=== PATIENT | female | born 1975 | race Caucasian/White ===

== ENCOUNTER 2020-08-23 10:11 | Outpatient (REF) | payer OTHER, SELFPAY ==
--- NOTE | 2020-08-23 10:41 | XR_ITS ---
EXAMINATION: XR FOOT, RIGHT XR FOOT, LEFT CLINICAL INFORMATION: Pain COMPARISON: 04/09/2016 TECHNIQUE: 3 views of each foot FINDINGS: Left foot: No fracture or dislocation. Alignment is anatomic. Joint spaces are maintained. The soft tissues are unremarkable. Small Achilles heel spur. Right foot: No fracture or dislocation. Alignment is anatomic. Joint spaces are maintained. The soft tissues are unremarkable. Small Achilles heel spur. XR/XR foot LT min 3V IMPRESSION: Small heel spurs bilaterally. Otherwise unremarkable appearance of both feet.
--- NOTE | 2020-08-23 10:41 | XR_ITS ---
EXAMINATION: XR FOOT, RIGHT XR FOOT, LEFT CLINICAL INFORMATION: Pain COMPARISON: 04/09/2016 TECHNIQUE: 3 views of each foot FINDINGS: Left foot: No fracture or dislocation. Alignment is anatomic. Joint spaces are maintained. The soft tissues are unremarkable. Small Achilles heel spur. Right foot: No fracture or dislocation. Alignment is anatomic. Joint spaces are maintained. The soft tissues are unremarkable. Small Achilles heel spur. XR/XR foot RT min 3V IMPRESSION: Small heel spurs bilaterally. Otherwise unremarkable appearance of both feet.
== END 2020-08-23 10:12 | disposition home or self-care (01) ==
LOC: HO.XRAY 10:11
PROVIDERS: Absent Provider Internal Medicine; PCP Internal Medicine; Visit Provider Emergency Medicine
DX: M79.671 Pain in right foot (principal); M79.672 Pain in left foot
CPT/HCPCS: 73630

== ENCOUNTER 2020-09-10 11:12 | Outpatient (REF) | payer OTHER, SELFPAY ==
--- NOTE | 2020-09-10 11:16 | MM_ITS ---
EXAMINATION: MM SCREENING DIGITAL BREAST TOMOSYNTHESIS, BILATERAL CLINICAL INFORMATION: Screening. Asymptomatic. The lifetime risk of breast cancer based on the Tyrer-Cuzick Model is 6.8%. COMPARISON: Mammography: October 05, 2016 and studies dating back to August 14, 2013 TECHNIQUE: Digital breast tomosynthesis is performed in both the craniocaudal and mediolateral oblique views along with computer-aided detection (CAD). Synthesized 2D images are generated from the tomosynthesis. FINDINGS: The breasts are heterogeneously dense, which may obscure small masses (ACR BI-RADS breast composition Category c). There are no significant masses, abnormal calcifications, or other abnormalities. MM/MM tomosynthesis screening BI IMPRESSION: There are no significant changes from prior study. ASSESSMENT: BI-RADS 1: Negative RECOMMENDATION: Routine annual mammography screening. This patient's information was entered into a reminder system with a target due date for their next mammogram.
== END 2020-09-10 11:13 | disposition home or self-care (01) ==
LOC: HO.MAMMO 11:12
PROVIDERS: Visit Provider Internal Medicine
DX: Z12.31 Encounter for screening mammogram for malignant neoplasm of breast (principal)
CPT/HCPCS: 77063; 77067

== ENCOUNTER 2020-10-03 10:07 | Outpatient (REF) | payer OTHER, SELFPAY ==
--- NOTE | 2020-10-03 10:09 | MR_ITS ---
MR BRAIN WITHOUT AND WITH CONTRAST CLINICAL INFORMATION: Demyelinating disease. Follow-up multiple sclerosis. COMPARISON: Brain MRI 08/13/2016. TECHNIQUE: Multiplanar, multisequence MRI of the brain was obtained before and after the intravenous administration of 10 mL Gadavist. FINDINGS: Stable pattern nonspecific T2 signal changes within the supratentorial white matter. No new parenchymal signal abnormality. No enhancing lesions. No infratentorial lesions. There is no hydrocephalus, extra-axial surface collection, or herniation. The major flow voids at the skull base are preserved. There is no acute infarct on diffusion-weighted imaging. There is no intracranial hemorrhage on the gradient recalled echo acquisition. The midline structures are normal. The cerebellar tonsils are normally positioned. The cerebellum and brainstem are normal. The craniocervical junction is normal. Osseous marrow signal intensity is homogenous. The visualized soft tissues are unremarkable. There is mild mucosal thickening within the left maxillary sinus and throughout the ethmoid air cells bilaterally. MR/MR head/brain wo/w con IMPRESSION: Stable pattern nonspecific T2 signal changes within the supratentorial white matter. No new parenchymal signal abnormality. No enhancing lesions.
== END 2020-10-03 10:08 | disposition home or self-care (01) ==
LOC: HO.MRI 10:07
PROVIDERS: Visit Provider Psychiatry & Neurology Neurology
DX: G37.9 Demyelinating disease of central nervous system, unspecified (principal)
CPT/HCPCS: 70553; A9585

== ENCOUNTER 2020-10-31 13:59 | Outpatient (REF) | payer OTHER, SELFPAY | END 2020-10-31 14:00 | disposition home or self-care (01) | LOC: HO.LAB 13:59 | PROVIDERS: Visit Provider Internal Medicine | DX: Z20.822 Contact with and (suspected) exposure to COVID-19 (principal) | CPT/HCPCS: 36415; C9803; U0003 ==

== ENCOUNTER 2021-03-14 10:02 | Outpatient (REF) | payer MEDICAID, SELFPAY ==
[2021-03-15 00:05] LABS: CT PCR NOT DETECTED (Not Detect.); NG PCR NOT DETECTED (Not Detect.)
[2021-03-17 13:27] LABS: HPV mRNA E6/E7 rflx Not Detected (Not Detected)
== END 2021-03-14 10:03 | disposition home or self-care (01) ==
LOC: HO.LAB 10:02
PROVIDERS: Visit Provider Advanced Practice Midwife
DX: Z01.419 Encounter for gynecological examination (general) (routine) without abnormal findings (principal); Z11.51 Encounter for screening for human papillomavirus (HPV); Z30.011 Encounter for initial prescription of contraceptive pills; R32 Unspecified urinary incontinence
CPT/HCPCS: 87491; 87591; 87624; 88142

== ENCOUNTER 2022-01-22 21:14 | Emergency (ER) | payer MEDICAID, SELFPAY ==
[2022-01-22 22:12] VITALS: BP 140/77; PULSE 80; RESP 17; TEMP 36.3; O2SAT 100; BMI 40.9
[2022-01-22 22:50] LABS: UPreg QC Valid YES; Urine Pregnancy NEGATIVE (NEGATIVE)
--- NOTE | 2022-01-22 23:18 | ED.HA ---
HPI - Headache General Chief Complaint: Headache Stated Complaint: pain in back of head, unable to move neck Time Seen by Provider: 01/22/22 23:18 Source: patient Limitations: no limitations History of Present Illness HPI Narrative: Patient history of complex migraine headache been having headache in the occipital area for last 2 weeks slightly increased light sensitivity also has pain in the upper part of the neck and upper back with possible diagnosis of fibromyalgia no nausea no vomiting patient does get migraine headache but this headache according to her slightly different than the past no fever no chills no head injury Related Data Home Medications Medication Instructions Recorded Confirmed acetaminophen 500 mg tablet 1,000 mg PO Q6H PRN 01/22/22 01/22/22 odoqwqr-wslhsfudxlxvz-rpqzakcr 250 1 tab PO Q4-6H PRN 01/22/22 01/22/22 mg-250 mg-65 mg tablet (Excedrin Migraine) ibuprofen 600 mg tablet 1 tab PO TID PRN 01/22/22 01/22/22 Previous Rx's Medication Instructions Recorded auqlhottxc-ubxdqbmtqbhzv-dgawyokc 1 cap PO Q6H PRN #20 cap 01/23/22 50 mg-300 mg-40 mg capsule (Fioricet) sumatriptan succinate 50 mg tablet 50 mg PO Q2H PRN #10 tab 01/23/22 (Imitrex) tramadol 50 mg tablet 50 mg PO Q6H PRN #20 tab 01/23/22 Allergies Allergy/AdvReac Type Severity Reaction Status Date / Time No Known Allergies Allergy Verified 01/22/22 22:12 Review of Systems Review of Systems: Yes all other systems are reviewed and are negative PMFSH Past Medical History Medical History Gall bladder disease Migraines Surgical History History of bilateral tubal ligation History of reversal of tubal ligation Social History Social History Alcohol intake: never Patient Tobacco Use Status: Never used Tobacco Advance Directives: No Advance Directives Information Provided: Yes Gender identity: Female Physical Exam Vital Signs: Vital Signs: Last Vital Signs Temp 97.3 F 01/22/22 22:12 Pulse 78 01/23/22 00:16 Resp 16 01/23/22 00:16 BP 153/81 H 01/23/22 00:16 Pulse Ox 98 01/23/22 00:16 BMI result Body Mass Index 40.9 Appearance: Alert. Oriented X3. No acute distress. Eyes: PERRLA, No Nystagmus HEENT: Pharynx normal. Oral Mucosa moist tender to touch in occipital area no skin changes Neck: Normal inspection. Neck supple. Diffuse tenderness in trapezius area bilateral no temporal artery tenderness CVS: Normal heart rate and rhythm. Pulses normal. Respiratory: No respiratory distress. Equal air entry bilateral, no wheezing/rales/rhonchi Abdomen: Soft and nontender. no CVA tenderness Skin: Skin warm and dry. Normal skin color. Normal skin turgor. Extremities: No lower extremity edema. No calf tenderness Neuro: Oriented X 3. No motor deficit. No sensory deficit.No cerebellar signs , cranial nerves II-XII intact MDM - Headache MDM Narrative Medical decision making narrative: Patient seems to be anxious with history of migraine headaches comes here for in his headache for last 2 weeks taken Tylenol without much relief. Will give her Imitrex subcu and see the response patient does have scalp tenderness likely tension headache 12:39 patient feeling much better now after Imitrex headache is almost gone will discharge patient home on Fioricet and tramadol for migraine headaches and fibromyalgia Lab Data Attestation: I reviewed the patient's lab results. Labs: Lab Results 01/22/22 Range/Units 22:42 Urine Test NEGATIVE (NEGATIVE) Discharge Plan Discharge Clinical Impression: Headache, migraine Patient Disposition: Home, Self-Care Instructions: Migraine Headache (ED), Fibromyalgia (ED) Additional Instructions: Take medication as prescribed Follow-up with instructional support services director as scheduled and neurologist Prescriptions: New sumatriptan succinate [Imitrex] 50 mg tablet 50 mg PO Q2H PRN (Reason: migraine headache) Qty: 10 0RF Rx Instructions: do not exceed 2 doses per 24 hrs tramadol 50 mg tablet 50 mg PO Q6H PRN (Reason: pain) Qty: 20 0RF wnhnnkvmgg-lsvywkkztunhm-qdrg [Fioricet] 50-300-40 mg capsule 1 cap PO Q6H PRN (Reason: headache) Qty: 20 0RF No Action acetaminophen [Tylenol Ex Str Arthritis Pain] 500 mg Tablet 1,000 mg PO Q6H PRN (Reason: Pain) 0RF ibuprofen 600 mg tablet 1 tab PO TID PRN (Reason: Pain) 0RF Excedrin Migraine 250-250-65 mg Tablet 1 tab PO Q4-6H PRN (Reason: Pain) 0RF Interventions: ED Discharge Assessment Last Done: 01/23/22 00:50 Discharge Date/Time: 01/23/22 00:53
[2022-01-22 23:34] VITALS: PULSE 83; RESP 16; O2SAT 99
[2022-01-23] MEDS: SUMAtriptan succinate 6 MG/0.5 ML VIAL SUBCUT
[2022-01-23 00:01] VITALS: PULSE 82; RESP 15; O2SAT 100
[2022-01-23 00:16] VITALS: BP 153/81; PULSE 78; RESP 16; O2SAT 98
[2022-01-23] MEDS: Butalb/Acetamin/Caff 50/325/40 TABLET 1 TAB PO (00:46)
== END 2022-01-23 00:53 | disposition home or self-care (01) ==
PROVIDERS: Emergency Provider Internal Medicine; PCP Internal Medicine
DX: G43.909 Migraine, unspecified, not intractable, without status migrainosus (principal); Z79.899 Other long term (current) drug therapy
CPT/HCPCS: 81025; 96372; 99284; J3030

== ENCOUNTER 2022-11-15 14:31 | Emergency (ER) | payer MEDICAID, SELFPAY ==
--- NOTE | ~2022-11-15 | CT_ITS ---
EXAMINATION: CT ABDOMEN AND PELVIS WITH CONTRAST CLINICAL INFORMATION: Left lower quadrant pain COMPARISON: CT abdomen and pelvis 02/10/2015 TECHNIQUE: Multidetector volumetric images were obtained from the superior aspect of the liver through the pubic symphysis following administration 85 mL of Omnipaque 350 intravenous contrast. Sagittal and coronal reformatted images were obtained on the technologist's workstation. Oral contrast: No This CT examination was performed using dose optimization techniques as appropriate, variously including the following: *Automated exposure control *Adjustment of mA and/or kV according to patient size (this includes techniques or standardized protocols for targeted exams where dose is matched to indication/reason for exam; i.e. extremities or head) *Use of iterative reconstruction technique DLP: 936 mGy-cm FINDINGS: LUNG BASES: Small thin-walled air cyst in the right lower lobe, unchanged. Visualized lung bases otherwise clear. LIVER, GALLBLADDER, AND BILIARY TREE: The liver is normal in size, shape, and attenuation. No focal hepatic lesion or biliary ductal dilatation is present. Gallbladder is not seen and either surgically absent or entirely decompressed. PANCREAS: Unremarkable. SPLEEN: Unremarkable. ADRENAL GLANDS: Unremarkable. KIDNEYS AND URETERS: The kidneys are normal in size, shape, and attenuation. No hydronephrosis, hydroureter, or calculi seen. No perinephric stranding. BLADDER: Unremarkable. GASTROINTESTINAL TRACT: Small hiatal hernia. No dilated bowel loops or bowel wall thickening. Normal appendix. No ascites or free air. ABDOMINAL WALL: No significant hernia is appreciated. LYMPH NODES: No lymphadenopathy. VASCULAR: Unremarkable. PELVIC VISCERA: The uterus and adnexa are unremarkable. OSSEOUS STRUCTURES: No acute fracture or suspicious osseous lesion. CT/CT abdomen pelvis w IV con IMPRESSION: No acute intra-abdominal process identified to explain the patient's left lower quadrant pain.
[2022-11-15 14:40] VITALS: BP 144/79; PULSE 88; RESP 16; TEMP 36.4; O2SAT 98
--- NOTE | 2022-11-15 14:40 | ED_ITS ---
HPI - Abdominal Pain General Chief Complaint: Abdominal Pain <ELINA Mo - Last Filed: 11/15/22 14:41> Stated Complaint: abd pain <ELINA Mo - Last Filed: 11/15/22 14:41> Time Seen by Provider: 11/15/22 21:45 <ELINA Mo - Last Filed: 11/15/22 14:41> Source: patient <Abner Vargas MD - Last Filed: 11/15/22 23:03> Mode of arrival: ambulatory <Abner Vargas MD - Last Filed: 11/15/22 23:03> Limitations: no limitations <Abner Vargas MD - Last Filed: 11/15/22 23:03> History of Present Illness HPI narrative: Patient 47 years old with no significant past medical history complaining of left lower abdominal pain with nausea for last 1 week patient does have pain in the left abdomen off and on for last 3 months for for last 1 week they constant feels cramping pain associated with nausea vomited 2-3 times feels hungry eating normally no relation with food no diarrhea no fever or chills patient feels bloated had normal bowel movement <Abner Vargas MD - Last Filed: 11/15/22 23:03> Related Data Home Medications: Home Medications Medication Instructions Recorded Confirmed acetaminophen 500 mg tablet 1,000 mg PO Q6H PRN Pain 01/22/22 01/22/22 wbbejwb-jdkouklecxzlo-izuxsfve 250 1 tab PO Q4-6H PRN Pain 01/22/22 01/22/22 mg-250 mg-65 mg tablet (Excedrin Migraine) ibuprofen 600 mg tablet 1 tab PO TID PRN Pain 01/22/22 01/22/22 Previous Rx's Medication Instructions Recorded dwwkaahjla-qwskuevpgoixh-xfryjnte 1 cap PO Q6H PRN headache #20 caps 01/23/22 50 mg-300 mg-40 mg capsule (Fioricet) sumatriptan succinate 50 mg tablet 50 mg PO Q2H PRN migraine headache 01/23/22 (Imitrex) #10 tabs tramadol 50 mg tablet 50 mg PO Q6H PRN pain #20 tabs 01/23/22 dicyclomine 20 mg tablet 20 mg PO QID PRN abdominal pain 11/15/22 #20 tabs <ELINA Mo - Last Filed: 11/15/22 14:41> Allergies/Adverse Reactions: Allergies Allergy/AdvReac Type Severity Reaction Status Date / Time No Known Allergies Allergy Verified 01/22/22 22:12 <ELINA Mo - Last Filed: 11/15/22 14:41> Review of Systems Review of Systems Yes all other systems are reviewed and are negative <Abner Vargas MD - Last Filed: 11/15/22 23:03> [facility] Past Medical History Medical History: Medical History Gall bladder disease Migraines <ELINA Mo - Last Filed: 11/15/22 14:41> Surgical History: Surgical History History of bilateral tubal ligation History of reversal of tubal ligation <ELINA Mo - Last Filed: 11/15/22 14:41> Social History Social History: Social History Alcohol intake: never Patient Tobacco Use Status: Never used Tobacco Smoked in Last 30 Days: No Use of substances other than those prescribed or required for medical reasons: No Advance Directives: No Advance Directives Information Provided: Yes Patient : No Gender identity: Female <ELINA Mo - Last Filed: 11/15/22 14:41> Physical Exam ED Vital Signs: Vital Signs - 24 hr 11/15/22 14:40 11/15/22 19:01 11/15/22 21:43 Temperature 97.5 F 98.2 F 98.7 F Pulse Rate 88 88 76 Respiratory Rate 16 18 16 Blood Pressure 144/79 H 143/76 H 134/73 Pulse Oximetry 98 98 99 Oxygen Delivery Method Room Air Room Air Room Air BMI result Body Mass Index 0.4 <ELINA Mo - Last Filed: 11/15/22 14:41> Vital Signs - 24 hr 11/15/22 14:40 11/15/22 19:01 11/15/22 21:43 Temperature 97.5 F 98.2 F 98.7 F Pulse Rate 88 88 76 Respiratory Rate 16 18 16 Blood Pressure 144/79 H 143/76 H 134/73 Pulse Oximetry 98 98 99 Oxygen Delivery Method Room Air Room Air Room Air BMI result Body Mass Index 0.4 <Abner Vargas MD - Last Filed: 11/15/22 23:03> Appearance: Alert. Oriented X3. No acute distress. Eyes: PERRLA, No Nystagmus ENT: Pharynx normal. Oral Mucosa moist Neck: Normal inspection. Neck supple. CVS: Normal heart rate and rhythm. Pulses normal. Respiratory: No respiratory distress. Equal air entry bilateral, no wheezing/rales/rhonchi Abdomen: Soft , mild tenderness left abdomen no rebound tenderness or guarding. Bowel sounds are present, no mass palpable, no CVA tenderness Skin: Skin warm and dry. Normal skin color. Normal skin turgor. Extremities: No lower extremity edema. No calf tenderness Neuro: Oriented X 3. <Abner Vargas MD - Last Filed: 11/15/22 23:03> Course Course Course Narrative: This is an RME: Additional HPI, ROS, PE not included below will be deferred to primary provider. This is a 47-year-old female presenting to the emergency department with complaints of 3 days of progressively worsening left lower quadrant pain ( sharp, constant) at with associated nausea. Patient tells me the pain is severe not improving. On exam there is left lower quadrant tenderness to palpation. Plan at this time labs, urine, CT of the abdomen and pelvis. No history of diverticulitis. <ELINA Mo - Last Filed: 11/15/22 14:41> Medical Decision Making Medical Decision Making MDM Narrative: Patient with nonspecific abdominal pain lab workup stable CT scan negative for acute pathology likely IBS will give patient dicyclomine <Abner Borrero i, MD - Last Filed: 11/15/22 23:03> Lab Data [facility] Lab Attestation statement: I reviewed the patient's lab results. <Abner Vargas MD - Last Filed: 11/15/22 23:03> Result Diagrams: 11/15/22 17:13 11/15/22 17:13 <ELINA Mo - Last Filed: 11/15/22 14:41> Labs: Lab Results 11/15/22 11/15/22 11/15/22 Range/Units 17:13 17:13 17:13 WBC 9.3 (4.8-10.8) X10*3/uL RBC 4.97 (4.20-5.50) X10*6/uL Hgb 13.5 (12.0-16.0) g/dl Hct 41.8 (37.0-47.0) % MCV 84.1 (80.0-98.0) fL MCH 27.2 (27.0-33.0) pg MCHC 32.3 (31.0-35.0) g/dl RDW 12.6 (11.0-16.0) % Plt Count 318 (160-400) X10*3/uL MPV 9.9 (9.4-12.3) fL Immature Gran % (Auto) 0.5 H (0.0-0.4) % Neut % (Auto) 58.1 (45-73) % Lymph % (Auto) 28.3 (20-40) % [place] % (Auto) 8.5 (2-11) % Eos % (Auto) 4.0 (0-4) % Baso % (Auto) 0.6 (0-2) % Lymph # (Auto) 2.6 (1.2-4.9) X10*3/uL [place] # (Auto) 0.8 (0.1-1.2) X10*3/uL Eos # (Auto) 0.4 (0.0-0.4) X10*3/uL Baso # (Auto) 0.1 (0.0-0.2) X10*3/uL Abs Immat Gran (auto) 0.05 H (0.00-0.03) X10*3/uL Absolute Neuts (auto) 5.4 (2.0-8.3) x10*3/uL Absolute Nucleated RBC 0.000 (0.0-0.012) X10*3/uL Nucleated RBC % (auto) 0.0 (0.0-0.2) /100WBC Sodium 141 (135-145) mmol/L Potassium 3.7 (3.3-5.1) mmol/L Chloride 109 H (96-108) mmol/L Carbon Dioxide 24 (22-29) mmol/L Anion Gap 12 (12-20) BUN 14 (9-16) mg/dL Creatinine 0.85 (0.5-1.4) mg/dL Estim Creat Clear Calc 121.5 Estimated GFR > 60 Random Glucose 95 (60-115) mg/dL Calcium 9.0 (8.4-10.2) mg/dL Magnesium 1.8 (1.6-2.6) mg/dL Total Bilirubin 0.5 (0.0-1.0) mg/dL AST 15 (5-31) U/L ALT 14 (0-31) U/L Alkaline Phosphatase 104 (39-117) U/L Total Protein 7.1 (6.5-8.0) g/dL Albumin 4.0 (3.5-5.0) g/dL Lipase 11 (8-78) U/L Urine Color Yellow Urine Appearance Clear Urine pH 5.5 (5.0-9.0) Ur Specific [place] 1.020 (1.005-1.025) Urine Protein Negative (Neg-Trace) mg/dL Urine Glucose (UA) Negative (Negative) mg/dL Urine Ketones Negative (Negative) mg/dL Urine Blood Trace H (Negative) Urine Nitrite Negative (Negative) Ur Leukocyte Esterase Negative (Negative) Urine RBC 3-5 H (0-2) /HPF Urine WBC 0-5 (0-5) /HPF Ur Squamous Epith Cells 0-2 (0-2) /HPF Urine Bacteria None Seen (None Seen) Hyaline Casts 0-2 (0-2) /LPF Urine Test (NEGATIVE) 11/15/22 Range/Units 17:13 WBC (4.8-10.8) X10*3/uL RBC (4.20-5.50) X10*6/uL Hgb (12.0-16.0) g/dl Hct (37.0-47.0) % MCV (80.0-98.0) fL MCH (27.0-33.0) pg MCHC (31.0-35.0) g/dl RDW (11.0-16.0) % Plt Count (160-400) X10*3/uL MPV (9.4-12.3) fL Immature Gran % (Auto) (0.0-0.4) % Neut % (Auto) (45-73) % Lymph % (Auto) (20-40) % [place] % (Auto) (2-11) % Eos % (Auto) (0-4) % Baso % (Auto) (0-2) % Lymph # (Auto) (1.2-4.9) X10*3/uL [place] # (Auto) (0.1-1.2) X10*3/uL Eos # (Auto) (0.0-0.4) X10*3/uL Baso # (Auto) (0.0-0.2) X10*3/uL Abs Immat Gran (auto) (0.00-0.03) X10*3/uL Absolute Neuts (auto) (2.0-8.3) x10*3/uL Absolute Nucleated RBC (0.0-0.012) X10*3/uL Nucleated RBC % (auto) (0.0-0.2) /100WBC Sodium (135-145) mmol/L Potassium (3.3-5.1) mmol/L Chloride (96-108) mmol/L Carbon Dioxide (22-29) mmol/L Anion Gap (12-20) BUN (9-16) mg/dL Creatinine (0.5-1.4) mg/dL Estim Creat Clear Calc Estimated GFR Random Glucose (60-115) mg/dL Calcium (8.4-10.2) mg/dL Magnesium (1.6-2.6) mg/dL Total Bilirubin (0.0-1.0) mg/dL AST (5-31) U/L ALT (0-31) U/L Alkaline Phosphatase (39-117) U/L Total Protein (6.5-8.0) g/dL Albumin (3.5-5.0) g/dL Lipase (8-78) U/L Urine Color Urine Appearance Urine pH (5.0-9.0) Ur Specific [place] (1.005-1.025) Urine Protein (Neg-Trace) mg/dL Urine Glucose (UA) (Negative) mg/dL Urine Ketones (Negative) mg/dL Urine Blood (Negative) Urine Nitrite (Negative) Ur Leukocyte Esterase (Negative) Urine RBC (0-2) /HPF Urine WBC (0-5) /HPF Ur Squamous Epith Cells (0-2) /HPF Urine Bacteria (None Seen) Hyaline Casts (0-2) /LPF Urine Test NEGATIVE (NEGATIVE) <ELINA Mo - Last Filed: 11/15/22 14:41> Lab Results 11/15/22 11/15/22 11/15/22 Range/Units 17:13 17:13 17:13 WBC 9.3 (4.8-10.8) X10*3/uL RBC 4.97 (4.20-5.50) X10*6/uL Hgb 13.5 (12.0-16.0) g/dl Hct 41.8 (37.0-47.0) % MCV 84.1 (80.0-98.0) fL MCH 27.2 (27.0-33.0) pg MCHC 32.3 (31.0-35.0) g/dl RDW 12.6 (11.0-16.0) % Plt Count 318 (160-400) X10*3/uL MPV 9.9 (9.4-12.3) fL Immature Gran % (Auto) 0.5 H (0.0-0.4) % Neut % (Auto) 58.1 (45-73) % Lymph % (Auto) 28.3 (20-40) % [place] % (Auto) 8.5 (2-11) % Eos % (Auto) 4.0 (0-4) % Baso % (Auto) 0.6 (0-2) % Lymph # (Auto) 2.6 (1.2-4.9) X10*3/uL [place] # (Auto) 0.8 (0.1-1.2) X10*3/uL Eos # (Auto) 0.4 (0.0-0.4) X10*3/uL Baso # (Auto) 0.1 (0.0-0.2) X10*3/uL Abs Immat Gran (auto) 0.05 H (0.00-0.03) X10*3/uL Absolute Neuts (auto) 5.4 (2.0-8.3) x10*3/uL Absolute Nucleated RBC 0.000 (0.0-0.012) X10*3/uL Nucleated RBC % (auto) 0.0 (0.0-0.2) /100WBC Sodium 141 (135-145) mmol/L Potassium 3.7 (3.3-5.1) mmol/L Chloride 109 H (96-108) mmol/L Carbon Dioxide 24 (22-29) mmol/L Anion Gap 12 (12-20) BUN 14 (9-16) mg/dL Creatinine 0.85 (0.5-1.4) mg/dL Estim Creat Clear Calc 121.5 Estimated GFR > 60 Random Glucose 95 (60-115) mg/dL Calcium 9.0 (8.4-10.2) mg/dL Magnesium 1.8 (1.6-2.6) mg/dL Total Bilirubin 0.5 (0.0-1.0) mg/dL AST 15 (5-31) U/L ALT 14 (0-31) U/L Alkaline Phosphatase 104 (39-117) U/L Total Protein 7.1 (6.5-8.0) g/dL Albumin 4.0 (3.5-5.0) g/dL Lipase 11 (8-78) U/L Urine Color Yellow Urine Appearance Clear Urine pH 5.5 (5.0-9.0) Ur Specific [place] 1.020 (1.005-1.025) Urine Protein Negative (Neg-Trace) mg/dL Urine Glucose (UA) Negative (Negative) mg/dL Urine Ketones Negative (Negative) mg/dL Urine Blood Trace H (Negative) Urine Nitrite Negative (Negative) Ur Leukocyte Esterase Negative (Negative) Urine RBC 3-5 H (0-2) /HPF Urine WBC 0-5 (0-5) /HPF Ur Squamous Epith Cells 0-2 (0-2) /HPF Urine Bacteria None Seen (None Seen) Hyaline Casts 0-2 (0-2) /LPF Urine Test (NEGATIVE) 11/15/22 Range/Units 17:13 WBC (4.8-10.8) X10*3/uL RBC (4.20-5.50) X10*6/uL Hgb (12.0-16.0) g/dl Hct (37.0-47.0) % MCV (80.0-98.0) fL MCH (27.0-33.0) pg MCHC (31.0-35.0) g/dl RDW (11.0-16.0) % Plt Count (160-400) X10*3/uL MPV (9.4-12.3) fL Immature Gran % (Auto) (0.0-0.4) % Neut % (Auto) (45-73) % Lymph % (Auto) (20-40) % [place] % (Auto) (2-11) % Eos % (Auto) (0-4) % Baso % (Auto) (0-2) % Lymph # (Auto) (1.2-4.9) X10*3/uL [place] # (Auto) (0.1-1.2) X10*3/uL Eos # (Auto) (0.0-0.4) X10*3/uL Baso # (Auto) (0.0-0.2) X10*3/uL Abs Immat Gran (auto) (0.00-0.03) X10*3/uL Absolute Neuts (auto) (2.0-8.3) x10*3/uL Absolute Nucleated RBC (0.0-0.012) X10*3/uL Nucleated RBC % (auto) (0.0-0.2) /100WBC Sodium (135-145) mmol/L Potassium (3.3-5.1) mmol/L Chloride (96-108) mmol/L Carbon Dioxide (22-29) mmol/L Anion Gap (12-20) BUN (9-16) mg/dL Creatinine (0.5-1.4) mg/dL Estim Creat Clear Calc Estimated GFR Random Glucose (60-115) mg/dL Calcium (8.4-10.2) mg/dL Magnesium (1.6-2.6) mg/dL Total Bilirubin (0.0-1.0) mg/dL AST (5-31) U/L ALT (0-31) U/L Alkaline Phosphatase (39-117) U/L Total Protein (6.5-8.0) g/dL Albumin (3.5-5.0) g/dL Lipase (8-78) U/L Urine Color Urine Appearance Urine pH (5.0-9.0) Ur Specific [place] (1.005-1.025) Urine Protein (Neg-Trace) mg/dL Urine Glucose (UA) (Negative) mg/dL Urine Ketones (Negative) mg/dL Urine Blood (Negative) Urine Nitrite (Negative) Ur Leukocyte Esterase (Negative) Urine RBC (0-2) /HPF Urine WBC (0-5) /HPF Ur Squamous Epith Cells (0-2) /HPF Urine Bacteria (None Seen) Hyaline Casts (0-2) /LPF Urine Test NEGATIVE (NEGATIVE) <Abner Vargas MD - Last Filed: 11/15/22 23:03> Medications Administered Discontinued Medications Generic Name Dose Route Start Last Admin Trade Name Freq PRN Reason Stop Dose Admin Dicyclomine HCl 20 mg 11/15/22 22:26 11/15/22 22:48 Dicyclomine Hcl 10 Mg Capsule PO 11/15/22 22:27 20 mg ONCE ONE Administration Iohexol 85 ml 11/15/22 22:19 11/15/22 22:20 Iohexol 350 Mg/Ml 100 Ml Infus..Btl IV 11/15/22 22:20 85 ml ONCE ONE Administration <ELINA Mo - Last Filed: 11/15/22 14:41> Medications Administered Discontinued Medications Generic Name Dose Route Start Last Admin Trade Name Freq PRN Reason Stop Dose Admin Dicyclomine HCl 20 mg 11/15/22 22:26 11/15/22 22:48 Dicyclomine Hcl 10 Mg Capsule PO 11/15/22 22:27 20 mg ONCE ONE Administration Iohexol 85 ml 11/15/22 22:19 11/15/22 22:20 Iohexol 350 Mg/Ml 100 Ml Infus..Btl IV 11/15/22 22:20 85 ml ONCE ONE Administration <Abner Vargas MD - Last Filed: 11/15/22 23:03> Discharge Plan Discharge Clinical Impression: Abdominal pain <ELINA Mo - Last Filed: 11/15/22 14:41> Patient Disposition: Home, Self-Care <ELINA Mo - Last Filed: 11/15/22 14:41> Instructions: Irritable Bowel Syndrome (ED), Abdominal Pain (ED) <ELINA Mo - Last Filed: 11/15/22 14:41> Additional Instructions: workup is negative for any acute pathology for abdominal pain Taking dicyclomine 1 tablet every 8 hours as needed for the pain Follow-up with PCP <ELINA Mo - Last Filed: 11/15/22 14:41> Prescriptions: New dicyclomine 20 mg tablet 20 mg PO QID PRN (Reason: abdominal pain) Qty: 20 0RF No Action acetaminophen [Tylenol Ex Str Arthritis Pain] 500 mg Tablet 1,000 mg PO Q6H PRN (Reason: Pain) ibuprofen 600 mg tablet 1 tab PO TID PRN (Reason: Pain) Excedrin Migraine 250-250-65 mg Tablet 1 tab PO Q4-6H PRN (Reason: Pain) sumatriptan succinate [Imitrex] 50 mg tablet 50 mg PO Q2H PRN (Reason: migraine headache) Qty: 10 0RF Rx Instructions: do not exceed 2 doses per 24 hrs tramadol 50 mg tablet 50 mg PO Q6H PRN (Reason: pain) Qty: 20 0RF fwerjddwps-jnlrrhlvkayzl-jpah [Fioricet] 50-300-40 mg capsule 1 cap PO Q6H PRN (Reason: headache) Qty: 20 0RF <ELINA Mo - Last Filed: 11/15/22 14:41>
[2022-11-15 17:20] LABS: MANUAL DIFF FLAG NO
[2022-11-15 17:22] LABS: Basophils Absolute Auto 0.1 X10*3/uL (0.0-0.2); Basophils Percent Auto 0.6 % (0-2); Eosinophils Absolute Auto 0.4 X10*3/uL (0.0-0.4); Hematocrit 41.8 % (37.0-47.0); Hemoglobin 13.5 g/dl (12.0-16.0); Imm Gran Abs Auto 0.05 X10*3/uL (0.00-0.03); Imm Gran Pct Auto 0.5 % (0.0-0.4); Lymphocytes Absolute Auto 2.6 X10*3/uL (1.2-4.9); Lymphocytes Percent Auto 28.3 % (20-40); Mean Corpuscular HGB Conc 32.3 g/dl (31.0-35.0); Mean Corpuscular Hemoglobin 27.2 pg (27.0-33.0); Mean Corpuscular Volume 84.1 fL (80.0-98.0); Mean Platelet Volume 9.9 fL (9.4-12.3); Monocytes Absolute Auto 0.8 X10*3/uL (0.1-1.2); Monocytes Percent Auto 8.5 % (2-11); Neutrophils Absolute Auto 5.4 x10*3/uL (2.0-8.3); Neutrophils Percent Auto 58.1 % (45-73); Platelet Count 318 X10*3/uL (160-400); Red Blood Count 4.97 X10*6/uL (4.20-5.50); Red Cell Distribution Width 12.6 % (11.0-16.0); White Blood Count 9.3 X10*3/uL (4.8-10.8)
[2022-11-15 17:24] LABS: Appearance Urine Clear; Color Urine Yellow; Glucose Urine UA Negative (Negative); Leukocyte Esterase Urine Negative (Negative); Nitrite Urine Negative (Negative); PH 5.5 (5.0-9.0); UMIC TRIGGER UACC YES; Urine Blood Trace (Negative); Urine Ketones Negative (Negative); Urine Protein Negative (Neg-Trace)
[2022-11-15 17:26] LABS: Bacteria Urine None Seen (None Seen); Hyaline Casts Urine 0-2 /LPF (0-2); Squamous Epithelial Cell Urine 0-2 /HPF (0-2); WBC Urine 0-5 /HPF (0-5)
[2022-11-15 17:27] LABS: UPreg QC Valid YES; Urine Pregnancy NEGATIVE (NEGATIVE)
[2022-11-15 17:38] LABS: Alanine Aminotransferase 14 U/L (0-31); Alkaline Phosphatase 104 U/L (39-117); Anion Gap 12 (12-20); Aspartate Amino Transferase 15 U/L (5-31); Bilirubin Total 0.5 mg/dL (0.0-1.0); Blood Urea Nitrogen 14 mg/dL (9-16); Carbon Dioxide 24 mmol/L (22-29); Chloride 109 mmol/L (96-108); Creatinine Clr Calc Pharmacy 121.5; Estimated Glomerular Filt Rate > 60; Glucose Random 95 mg/dL (60-115); Lipase 11 U/L (8-78); Magnesium 1.8 mg/dL (1.6-2.6); Potassium 3.7 mmol/L (3.3-5.1); Sodium 141 mmol/L (135-145); Total Protein 7.1 g/dL (6.5-8.0)
[2022-11-15 19:01] VITALS: BP 143/76; PULSE 88; RESP 18; TEMP 36.8; O2SAT 98
[2022-11-15 21:43] VITALS: BP 134/73; PULSE 76; RESP 16; TEMP 37.1; O2SAT 99
--- NOTE | 2022-11-15 22:08 | PC.NURSE ---
PT A&Ox4, reports 05/16 LLQ abd pain x 3 days. States it feels cramping and its intermittent with N/V. Reports last BM today. + bowel sounds. IV line placed.
[2022-11-15] MEDS: iohexoL 350 MG/ML 100 ML INFUS..BTL 85 ML IV (22:20)
[2022-11-15] MEDS: Dicyclomine HCl 10 MG CAPSULE 20 MG PO (22:48)
== END 2022-11-15 23:13 | disposition home or self-care (01) ==
PROVIDERS: Physician Assistant; Emergency Provider Internal Medicine; PCP Internal Medicine
DX: R10.32 Left lower quadrant pain (principal); Z79.899 Other long term (current) drug therapy
CPT/HCPCS: 36415; 74177; 80053; 81001; 81025; 83690; 83735; 85025; 99284; Q9967

== ENCOUNTER 2022-12-30 13:34 | Emergency (ER) | payer MEDICAID, SELFPAY ==
--- NOTE | ~2022-12-30 | CT_ITS ---
EXAMINATION: CT HEAD WITHOUT CONTRAST CLINICAL INFORMATION: Dizziness COMPARISON: None available. TECHNIQUE: Contiguous axial imaging was performed from the skull base to vertex without intravenous administration of contrast. This CT examination was performed using dose optimization techniques as appropriate, variously including the following: *Automated exposure control *Adjustment of mA and/or kV according to patient size (this includes techniques or standardized protocols for targeted exams where dose is matched to indication/reason for exam; i.e. extremities or head) *Use of iterative reconstruction technique DLP: 630 mGy-cm FINDINGS: FINDINGS: There is no evidence of acute intracranial hemorrhage or territorial infarction. No abnormal mass effect or midline shift is seen. Vera to white matter differentiation is well preserved. No extra-axial fluid collections are identified. The ventricles are normal in size. No abnormal attenuation in the brain parenchyma. No acute calvarial fracture.. Paranasal sinuses and mastoid air cells are well-aerated. CT/CT head/brain wo IV con IMPRESSION: No CT evidence of acute intracranial hemorrhage or process.
[2022-12-30 14:01] VITALS: BP 139/75; PULSE 85; RESP 15; TEMP 36.6; O2SAT 98; BMI 43.9
--- NOTE | 2022-12-30 14:08 | ECG_ITS ---
Test Reason : DIZZINESS Blood Pressure : / mmHG Vent. Rate : 075 BPM Atrial Rate : 075 BPM P-R Int : 136 ms QRS Dur : 086 ms QT Int : 392 ms P-R-T Axes : 042 026 020 degrees QTc Int : 437 ms Normal sinus rhythm Normal ECG When compared with ECG of 30-AUG-2019 13:16, No significant change was found Referred By: Ovidio Michel Electronically Signed By:JESUS MAYFIELD
--- NOTE | 2022-12-30 14:09 | ED.GENADULT ---
HPI - General Adult General Chief complaint: Headache Stated complaint: Dizziness/Blurred vision/Head pain Time Seen by Provider: 12/30/22 21:15 Related Data Home Medications Medication Instructions Recorded Confirmed acetaminophen 500 mg tablet 1,000 mg PO Q6H PRN Pain 01/22/22 01/22/22 egicoti-cqowqncdrknru-kfrsztfe 250 1 tab PO Q4-6H PRN Pain 01/22/22 01/22/22 mg-250 mg-65 mg tablet (Excedrin Migraine) ibuprofen 600 mg tablet 1 tab PO TID PRN Pain 01/22/22 01/22/22 Previous Rx's Medication Instructions Recorded msyfnzdtgp-qezrbsrdkjuue-rqvdndjv 1 cap PO Q6H PRN headache #20 caps 01/23/22 50 mg-300 mg-40 mg capsule (Fioricet) sumatriptan succinate 50 mg tablet 50 mg PO Q2H PRN migraine headache 01/23/22 (Imitrex) #10 tabs tramadol 50 mg tablet 50 mg PO Q6H PRN pain #20 tabs 01/23/22 dicyclomine 20 mg tablet 20 mg PO QID PRN abdominal pain 11/15/22 #20 tabs Allergies Allergy/AdvReac Type Severity Reaction Status Date / Time No Known Allergies Allergy Verified 01/22/22 22:12 [facility] Past Medical History Medical History Gall bladder disease Migraines Surgical History History of bilateral tubal ligation History of reversal of tubal ligation Social History Social History Alcohol intake: never Patient Tobacco Use Status: Never used Tobacco Advance Directives: No Advance Directives Information Provided: Yes Gender identity: Female Physical Exam ED Vital Signs: Vital Signs - 24 hr 12/30/22 14:01 12/30/22 20:36 12/30/22 22:56 Temperature 98 F 98.9 F 98.0 F Pulse Rate 85 82 80 Respiratory Rate 15 16 16 Blood Pressure 139/75 139/82 133/67 Pulse Oximetry 98 98 97 Oxygen Delivery Method Room Air Room Air Room Air BMI result Body Mass Index 43.9 Course Course Course Narrative: RME: 47 yold female presents to the ED for headache, blurry visions, dizziness ( room spining). Negative for fever or chills. no chest pain or shortness of breath. neuro exam is normal and A0x3. SARS, labs, EkG, and head CT scan ordered Medications Administered Discontinued Medications Generic Name Dose Route Start Last Admin Trade Name Freq PRN Reason Stop Dose Admin Diphenhydramine HCl 50 mg 12/30/22 21:37 12/30/22 22:30 Diphenhydramine Hcl 50 Mg/Ml Vial IVPUSH 12/30/22 21:38 50 mg ONCE ONE Administration Sodium Chloride 1,000 mls @ 999 mls/hr 12/30/22 21:45 12/30/22 22:02 Ns IV 12/30/22 22:45 999 mls/hr .Q1H1M LONI Administration Ketorolac Tromethamine 15 mg 12/30/22 21:37 12/30/22 22:30 Ketorolac Tromethamine 15 Mg/Ml Vial IVPUSH 12/30/22 21:38 15 mg ONCE ONE Administration Metoclopramide HCl 10 mg 12/30/22 21:37 12/30/22 22:30 Metoclopramide Hcl 10 Mg/2 Ml Vial IVPUSH 12/30/22 21:38 10 mg ONCE ONE Administration Medical Decision Making Lab Data 12/30/22 14:58 12/30/22 14:58 Labs: Lab Results 12/30/22 12/30/22 12/30/22 Range/Units 14:58 14:58 14:58 WBC 7.0 (4.8-10.8) X10*3/uL RBC 4.79 (4.20-5.50) X10*6/uL Hgb 13.0 (12.0-16.0) g/dl Hct 40.3 (37.0-47.0) % MCV 84.1 (80.0-98.0) fL MCH 27.1 (27.0-33.0) pg MCHC 32.3 (31.0-35.0) g/dl RDW 12.4 (11.0-16.0) % Plt Count 308 (160-400) X10*3/uL MPV 9.7 (9.4-12.3) fL Immature Gran % (Auto) 0.7 H (0.0-0.4) % Neut % (Auto) 55.0 (45-73) % Lymph % (Auto) 30.3 (20-40) % [place] % (Auto) 9.3 (2-11) % Eos % (Auto) 4.1 H (0-4) % Baso % (Auto) 0.6 (0-2) % Lymph # (Auto) 2.1 (1.2-4.9) X10*3/uL [place] # (Auto) 0.7 (0.1-1.2) X10*3/uL Eos # (Auto) 0.3 (0.0-0.4) X10*3/uL Baso # (Auto) 0.0 (0.0-0.2) X10*3/uL Abs Immat Gran (auto) 0.05 H (0.00-0.03) X10*3/uL Absolute Neuts (auto) 3.9 (2.0-8.3) x10*3/uL Absolute Nucleated RBC 0.000 (0.0-0.012) X10*3/uL Nucleated RBC % (auto) 0.0 (0.0-0.2) /100WBC PT 11.7 (10.0-13.1) SEC INR 1.0 (0.9-1.1) APTT 31.9 (26.0-36.4) SEC Sodium 143 (135-145) mmol/L Potassium 4.0 (3.3-5.1) mmol/L Chloride 110 H (96-108) mmol/L Carbon Dioxide 25 (22-29) mmol/L Anion Gap 12 (12-20) BUN 15 (9-16) mg/dL Creatinine 0.74 (0.5-1.4) mg/dL Estim Creat Clear Calc 106.8 Estimated GFR > 60 Random Glucose 81 (60-115) mg/dL Calcium 8.7 (8.4-10.2) mg/dL Total Bilirubin 0.3 (0.0-1.0) mg/dL AST 18 (5-31) U/L ALT 17 (0-31) U/L Alkaline Phosphatase 89 (39-117) U/L Troponin I High Sens (<3.5-17.0) ng/L Total Protein 6.7 (6.5-8.0) g/dL Albumin 3.8 (3.5-5.0) g/dL Beta HCG, Quant mIU/mL Influenza Type A (PCR) (Negative) Influenza Type B (PCR) (Negative) RSV RNA Qual (PCR) (Negative) SARS-CoV-2 RNA (RT-PCR) (Negative) 12/30/22 12/30/22 12/30/22 Range/Units 14:58 14:58 14:58 WBC (4.8-10.8) X10*3/uL RBC (4.20-5.50) X10*6/uL Hgb (12.0-16.0) g/dl Hct (37.0-47.0) % MCV (80.0-98.0) fL MCH (27.0-33.0) pg MCHC (31.0-35.0) g/dl RDW (11.0-16.0) % Plt Count (160-400) X10*3/uL MPV (9.4-12.3) fL Immature Gran % (Auto) (0.0-0.4) % Neut % (Auto) (45-73) % Lymph % (Auto) (20-40) % [place] % (Auto) (2-11) % Eos % (Auto) (0-4) % Baso % (Auto) (0-2) % Lymph # (Auto) (1.2-4.9) X10*3/uL [place] # (Auto) (0.1-1.2) X10*3/uL Eos # (Auto) (0.0-0.4) X10*3/uL Baso # (Auto) (0.0-0.2) X10*3/uL Abs Immat Gran (auto) (0.00-0.03) X10*3/uL Absolute Neuts (auto) (2.0-8.3) x10*3/uL Absolute Nucleated RBC (0.0-0.012) X10*3/uL Nucleated RBC % (auto) (0.0-0.2) /100WBC PT (10.0-13.1) SEC INR (0.9-1.1) APTT (26.0-36.4) SEC Sodium (135-145) mmol/L Potassium (3.3-5.1) mmol/L Chloride (96-108) mmol/L Carbon Dioxide (22-29) mmol/L Anion Gap (12-20) BUN (9-16) mg/dL Creatinine (0.5-1.4) mg/dL Estim Creat Clear Calc Estimated GFR Random Glucose (60-115) mg/dL Calcium (8.4-10.2) mg/dL Total Bilirubin (0.0-1.0) mg/dL AST (5-31) U/L ALT (0-31) U/L Alkaline Phosphatase (39-117) U/L Troponin I High Sens 5.7 (<3.5-17.0) ng/L Total Protein (6.5-8.0) g/dL Albumin (3.5-5.0) g/dL Beta HCG, Quant < 2 mIU/mL Influenza Type A (PCR) NEGATIVE (Negative) Influenza Type B (PCR) NEGATIVE (Negative) RSV RNA Qual (PCR) NEGATIVE (Negative) SARS-CoV-2 RNA (RT-PCR) NEGATIVE (Negative) Discharge Plan Discharge Clinical Impression: Migraine Patient Disposition: Home, Self-Care Instructions: Migraine Headache (ED) Prescriptions: No Action acetaminophen [Tylenol Ex Str Arthritis Pain] 500 mg Tablet 1,000 mg PO Q6H PRN (Reason: Pain) ibuprofen 600 mg tablet 1 tab PO TID PRN (Reason: Pain) Excedrin Migraine 250-250-65 mg Tablet 1 tab PO Q4-6H PRN (Reason: Pain) sumatriptan succinate [Imitrex] 50 mg tablet 50 mg PO Q2H PRN (Reason: migraine headache) Qty: 10 0RF Rx Instructions: do not exceed 2 doses per 24 hrs tramadol 50 mg tablet 50 mg PO Q6H PRN (Reason: pain) Qty: 20 0RF msgkgsmexz-afbfemzcdqijj-jjfj [Fioricet] 50-300-40 mg capsule 1 cap PO Q6H PRN (Reason: headache) Qty: 20 0RF dicyclomine 20 mg tablet 20 mg PO QID PRN (Reason: abdominal pain) Qty: 20 0RF Referrals: Tara Shaikh MD [Primary Care Provider] - Interventions: ED Discharge Assessment Last Done: 12/30/22 23:38 Discharge Date/Time: 12/30/22 23:38
[2022-12-30 15:04] LABS: MANUAL DIFF FLAG NO
[2022-12-30 15:05] LABS: Basophils Percent Auto 0.6 % (0-2); Eosinophils Absolute Auto 0.3 X10*3/uL (0.0-0.4); Eosinophils Percent Auto 4.1 % (0-4); Hematocrit 40.3 % (37.0-47.0); Imm Gran Abs Auto 0.05 X10*3/uL (0.00-0.03); Imm Gran Pct Auto 0.7 % (0.0-0.4); Lymphocytes Absolute Auto 2.1 X10*3/uL (1.2-4.9); Lymphocytes Percent Auto 30.3 % (20-40); Mean Corpuscular HGB Conc 32.3 g/dl (31.0-35.0); Mean Corpuscular Hemoglobin 27.1 pg (27.0-33.0); Mean Corpuscular Volume 84.1 fL (80.0-98.0); Mean Platelet Volume 9.7 fL (9.4-12.3); Monocytes Absolute Auto 0.7 X10*3/uL (0.1-1.2); Monocytes Percent Auto 9.3 % (2-11); Neutrophils Absolute Auto 3.9 x10*3/uL (2.0-8.3); Platelet Count 308 X10*3/uL (160-400); Red Blood Count 4.79 X10*6/uL (4.20-5.50); Red Cell Distribution Width 12.4 % (11.0-16.0)
[2022-12-30 15:14] LABS: Prothrombin Time 11.7 SEC (10.0-13.1)
[2022-12-30 15:16] LABS: Partial Thromboplastin Time 31.9 SEC (26.0-36.4)
[2022-12-30 15:29] LABS: HCG Quantitative < 2 mIU/mL
[2022-12-30 15:32] LABS: Alanine Aminotransferase 17 U/L (0-31); Albumin Level 3.8 g/dL (3.5-5.0); Alkaline Phosphatase 89 U/L (39-117); Anion Gap 12 (12-20); Aspartate Amino Transferase 18 U/L (5-31); Bilirubin Total 0.3 mg/dL (0.0-1.0); Blood Urea Nitrogen 15 mg/dL (9-16); Calcium 8.7 mg/dL (8.4-10.2); Carbon Dioxide 25 mmol/L (22-29); Chloride 110 mmol/L (96-108); Creatinine Clr Calc Pharmacy 106.8; Estimated Glomerular Filt Rate > 60; Glucose Random 81 mg/dL (60-115); Sodium 143 mmol/L (135-145); Total Protein 6.7 g/dL (6.5-8.0); Troponin-I High Sensitivity 5.7 ng/L (<3.5-17.0)
[2022-12-30 15:48] LABS: Influenza A PCR NEGATIVE (Negative); Influenza B PCR NEGATIVE (Negative); Resp Syncy Virus RNA Qual PCR NEGATIVE (Negative); SARS COV2 PCR INHOUSE NEGATIVE (Negative)
[2022-12-30 20:36] VITALS: BP 139/82; PULSE 82; RESP 16; TEMP 37.2; O2SAT 98
--- NOTE | 2022-12-30 21:39 | ED.HA ---
HPI - Headache General Chief Complaint: Headache Stated Complaint: Dizziness/Blurred vision/Head pain Time Seen by Provider: 12/30/22 21:15 History of Present Illness HPI Narrative: Patient is a 47-year-old female presents today with some headache some blurred vision some dizziness lightheadedness. What she means by blue in vision is about 1/3 of the time he is seeing double. The double vision is over the entire visual field. Does not matter she will upward downward to IR to left. At other times she is feeling dizzy some generalized blurred vision and some other times her vision is completely normal. Patient has a history of migraine. Denies any history of diabetes, hypertension, high cholesterol, smoking, heart attacks. On no new medications. No recreational drugs. Patient is from home. Positive history of migraine. Related Data Home Medications Medication Instructions Recorded Confirmed acetaminophen 500 mg tablet 1,000 mg PO Q6H PRN Pain 01/22/22 01/22/22 kjqbufe-lloxdkqhhuhil-uueybffa 250 1 tab PO Q4-6H PRN Pain 01/22/22 01/22/22 mg-250 mg-65 mg tablet (Excedrin Migraine) ibuprofen 600 mg tablet 1 tab PO TID PRN Pain 01/22/22 01/22/22 Previous Rx's Medication Instructions Recorded wsqthymvgl-jqkkxmwjhglfs-mkouzhxq 1 cap PO Q6H PRN headache #20 caps 01/23/22 50 mg-300 mg-40 mg capsule (Fioricet) sumatriptan succinate 50 mg tablet 50 mg PO Q2H PRN migraine headache 01/23/22 (Imitrex) #10 tabs tramadol 50 mg tablet 50 mg PO Q6H PRN pain #20 tabs 01/23/22 dicyclomine 20 mg tablet 20 mg PO QID PRN abdominal pain 11/15/22 #20 tabs Allergies Allergy/AdvReac Type Severity Reaction Status Date / Time No Known Allergies Allergy Verified 01/22/22 22:12 Review of Systems Review of Systems: Positive dizziness No fever no chills no neck Yes all other systems are reviewed and are negative PMFSH Past Medical History Attestation statement: The following information was validated with the patient. Medical History Gall bladder disease Migraines Surgical History History of bilateral tubal ligation History of reversal of tubal ligation Social History Social History Alcohol intake: never Patient Tobacco Use Status: Never used Tobacco Advance Directives: No Advance Directives Information Provided: Yes Gender identity: Female Physical Exam Vital Signs: Vital Signs: Last Vital Signs Temp 98.0 F 12/30/22 22:56 Pulse 80 12/30/22 22:56 Resp 16 12/30/22 22:56 BP 133/67 12/30/22 22:56 Pulse Ox 97 12/30/22 22:56 O2 Del Method Room Air 12/30/22 22:56 BMI result Body Mass Index 43.9 Appearance: Alert. Oriented X3. No acute distress. Eyes: Pupils equal, round and reactive to light. ENT: Pharynx normal. Neck: Normal inspection. Neck supple. No lymph nodes noted. No crepitus CVS: Normal heart rate and rhythm. Pulses normal. Normal S1 and S2 Respiratory: No respiratory distress. Breath sounds normal. No Wheezing. No rales Abdomen: Soft and nontender. No rigidity. No distention. good BS x4 Skin: Skin warm and dry. Normal skin color. Normal skin turgor. Extremities: No lower extremity edema. Neurovascular intact to all extremities. No Lacerations. No Rash Neuro: Oriented X 3. No motor deficit. No sensory deficit. Moving all extermities. No slurred speech Medications Administered Discontinued Medications Generic Name Dose Route Start Last Admin Trade Name Freq PRN Reason Stop Dose Admin Diphenhydramine HCl 50 mg 12/30/22 21:37 12/30/22 22:30 Diphenhydramine Hcl 50 Mg/Ml Vial IVPUSH 12/30/22 21:38 50 mg ONCE ONE Administration Sodium Chloride 1,000 mls @ 999 mls/hr 12/30/22 21:45 12/30/22 22:02 Ns IV 12/30/22 22:45 999 mls/hr .Q1H1M LONI Administration Ketorolac Tromethamine 15 mg 12/30/22 21:37 12/30/22 22:30 Ketorolac Tromethamine 15 Mg/Ml Vial IVPUSH 12/30/22 21:38 15 mg ONCE ONE Administration Metoclopramide HCl 10 mg 12/30/22 21:37 12/30/22 22:30 Metoclopramide Hcl 10 Mg/2 Ml Vial IVPUSH 12/30/22 21:38 10 mg ONCE ONE Administration Medical Decision Making Medical Decision Making [facility] Narrative: Patient history of migraine. Positive pain in the frontal area similar to previous bouts of migraine. Given migraine treatment. With good resolution of symptoms. Dizziness has resolved. Patient's visual acuity is 20 50 OS, OD. Well-appearing no distress. Neurologically intact unlikely patient has CVA. She is well appearing. Will discharge patient home. Differential Diagnosis Differential Diagnoses: The differential diagnosis associated with the presentation includes Migraine, dizziness, meningitis, mass, stroke Lab Data [facility] Lab Attestation statement: I reviewed the patient's lab results. 12/30/22 14:58 12/30/22 14:58 Labs: Lab Results 12/30/22 12/30/22 12/30/22 Range/Units 14:58 14:58 14:58 WBC 7.0 (4.8-10.8) X10*3/uL RBC 4.79 (4.20-5.50) X10*6/uL Hgb 13.0 (12.0-16.0) g/dl Hct 40.3 (37.0-47.0) % MCV 84.1 (80.0-98.0) fL MCH 27.1 (27.0-33.0) pg MCHC 32.3 (31.0-35.0) g/dl RDW 12.4 (11.0-16.0) % Plt Count 308 (160-400) X10*3/uL MPV 9.7 (9.4-12.3) fL Immature Gran % (Auto) 0.7 H (0.0-0.4) % Neut % (Auto) 55.0 (45-73) % Lymph % (Auto) 30.3 (20-40) % [place] % (Auto) 9.3 (2-11) % Eos % (Auto) 4.1 H (0-4) % Baso % (Auto) 0.6 (0-2) % Lymph # (Auto) 2.1 (1.2-4.9) X10*3/uL [place] # (Auto) 0.7 (0.1-1.2) X10*3/uL Eos # (Auto) 0.3 (0.0-0.4) X10*3/uL Baso # (Auto) 0.0 (0.0-0.2) X10*3/uL Abs Immat Gran (auto) 0.05 H (0.00-0.03) X10*3/uL Absolute Neuts (auto) 3.9 (2.0-8.3) x10*3/uL Absolute Nucleated RBC 0.000 (0.0-0.012) X10*3/uL Nucleated RBC % (auto) 0.0 (0.0-0.2) /100WBC PT 11.7 (10.0-13.1) SEC INR 1.0 (0.9-1.1) APTT 31.9 (26.0-36.4) SEC Sodium 143 (135-145) mmol/L Potassium 4.0 (3.3-5.1) mmol/L Chloride 110 H (96-108) mmol/L Carbon Dioxide 25 (22-29) mmol/L Anion Gap 12 (12-20) BUN 15 (9-16) mg/dL Creatinine 0.74 (0.5-1.4) mg/dL Estim Creat Clear Calc 106.8 Estimated GFR > 60 Random Glucose 81 (60-115) mg/dL Calcium 8.7 (8.4-10.2) mg/dL Total Bilirubin 0.3 (0.0-1.0) mg/dL AST 18 (5-31) U/L ALT 17 (0-31) U/L Alkaline Phosphatase 89 (39-117) U/L Troponin I High Sens (<3.5-17.0) ng/L Total Protein 6.7 (6.5-8.0) g/dL Albumin 3.8 (3.5-5.0) g/dL Beta HCG, Quant mIU/mL Influenza Type A (PCR) (Negative) Influenza Type B (PCR) (Negative) RSV RNA Qual (PCR) (Negative) SARS-CoV-2 RNA (RT-PCR) (Negative) 12/30/22 12/30/22 12/30/22 Range/Units 14:58 14:58 14:58 WBC (4.8-10.8) X10*3/uL RBC (4.20-5.50) X10*6/uL Hgb (12.0-16.0) g/dl Hct (37.0-47.0) % MCV (80.0-98.0) fL MCH (27.0-33.0) pg MCHC (31.0-35.0) g/dl RDW (11.0-16.0) % Plt Count (160-400) X10*3/uL MPV (9.4-12.3) fL Immature Gran % (Auto) (0.0-0.4) % Neut % (Auto) (45-73) % Lymph % (Auto) (20-40) % [place] % (Auto) (2-11) % Eos % (Auto) (0-4) % Baso % (Auto) (0-2) % Lymph # (Auto) (1.2-4.9) X10*3/uL [place] # (Auto) (0.1-1.2) X10*3/uL Eos # (Auto) (0.0-0.4) X10*3/uL Baso # (Auto) (0.0-0.2) X10*3/uL Abs Immat Gran (auto) (0.00-0.03) X10*3/uL Absolute Neuts (auto) (2.0-8.3) x10*3/uL Absolute Nucleated RBC (0.0-0.012) X10*3/uL Nucleated RBC % (auto) (0.0-0.2) /100WBC PT (10.0-13.1) SEC INR (0.9-1.1) APTT (26.0-36.4) SEC Sodium (135-145) mmol/L Potassium (3.3-5.1) mmol/L Chloride (96-108) mmol/L Carbon Dioxide (22-29) mmol/L Anion Gap (12-20) BUN (9-16) mg/dL Creatinine (0.5-1.4) mg/dL Estim Creat Clear Calc Estimated GFR Random Glucose (60-115) mg/dL Calcium (8.4-10.2) mg/dL Total Bilirubin (0.0-1.0) mg/dL AST (5-31) U/L ALT (0-31) U/L Alkaline Phosphatase (39-117) U/L Troponin I High Sens 5.7 (<3.5-17.0) ng/L Total Protein (6.5-8.0) g/dL Albumin (3.5-5.0) g/dL Beta HCG, Quant < 2 mIU/mL Influenza Type A (PCR) NEGATIVE (Negative) Influenza Type B (PCR) NEGATIVE (Negative) RSV RNA Qual (PCR) NEGATIVE (Negative) SARS-CoV-2 RNA (RT-PCR) NEGATIVE (Negative) Radiology Impression Discussion of test interpretation with radiology: I have reviewed the radiologist's reading. Radiologist Impression: CT scan of the head grossly negative for any acute evidence of bleeding. No mass. Chronic Conditions Migraine headaches Discharge Plan Discharge Clinical Impression: Migraine Patient Disposition: Home, Self-Care Instructions: Migraine Headache (ED) Prescriptions: No Action acetaminophen [Tylenol Ex Str Arthritis Pain] 500 mg Tablet 1,000 mg PO Q6H PRN (Reason: Pain) ibuprofen 600 mg tablet 1 tab PO TID PRN (Reason: Pain) Excedrin Migraine 250-250-65 mg Tablet 1 tab PO Q4-6H PRN (Reason: Pain) sumatriptan succinate [Imitrex] 50 mg tablet 50 mg PO Q2H PRN (Reason: migraine headache) Qty: 10 0RF Rx Instructions: do not exceed 2 doses per 24 hrs tramadol 50 mg tablet 50 mg PO Q6H PRN (Reason: pain) Qty: 20 0RF phqflthfgy-ddvzuedldddrm-jegc [Fioricet] 50-300-40 mg capsule 1 cap PO Q6H PRN (Reason: headache) Qty: 20 0RF dicyclomine 20 mg tablet 20 mg PO QID PRN (Reason: abdominal pain) Qty: 20 0RF Referrals: Tara Shaikh MD [Primary Care Provider] -
[2022-12-30] MEDS: 0.9 % Sodium Chloride 1,000 ML 999 ML IV (22:02)
[2022-12-30] MEDS: Metoclopramide HCl 10 MG/2 ML VIAL IVPUSH (22:30)
[2022-12-30] MEDS: Ketorolac Tromethamine 15 MG/ML VIAL IVPUSH (22:30)
[2022-12-30] MEDS: diphenhydrAMINE HCL 50 MG/ML VIAL IVPUSH (22:30)
--- NOTE | 2022-12-30 22:36 | PC.NURSE ---
pt medicated per provider order, 1L NS running.
--- NOTE | 2022-12-30 22:44 | PC.NURSE ---
20G iv PLACED IN LEFT AC, INFUSING 0.9%NS PER ORDER, PT VISUAL ACUITY 20/50 COMPLAINS OF BLURRED VISION AND SINUS PRESSURE- NO NEW ORDERS AT THIS TIME, PT ALERT, EATING CHICKEN WITH FRIEND AT BEDSIDE. CALL [facility] WITHIN REACH WCTM
[2022-12-30 22:56] VITALS: BP 133/67; PULSE 80; RESP 16; TEMP 36.7; O2SAT 97
--- NOTE | 2022-12-30 23:37 | PC.NURSE ---
assessed and discharge by provider, This Rn reviewed discharge instruction with pt. pt verbalized understanding, pt reports improvement in symptoms, no distress upon discharge.
== END 2022-12-30 23:38 | disposition home or self-care (01) ==
PROVIDERS: Physician Assistant; Emergency Provider Emergency Medicine Emergency Medical Services; PCP Internal Medicine
DX: G43.909 Migraine, unspecified, not intractable, without status migrainosus (principal); H53.8 Other visual disturbances; R42 Dizziness and giddiness; Z20.822 Contact with and (suspected) exposure to COVID-19; Z20.828 Contact with and (suspected) exposure to other viral communicable diseases; Z79.899 Other long term (current) drug therapy
CPT/HCPCS: 0241U; 36415; 70450; 80053; 84484; 84702; 85025; 85610; 85730; 93005; 96361; 96374; 96375; 99284; J1200; J1885; J2765

== ENCOUNTER 2023-04-28 13:34 | Emergency (ER) | payer MEDICAID, SELFPAY ==
--- NOTE | ~2023-04-28 | XR_ITS ---
EXAMINATION: XR WRIST, LEFT XR HAND, LEFT CLINICAL INFORMATION: Injury COMPARISON: Previous x-ray most recent October 2013 TECHNIQUE: PA, lateral, and oblique views of the left wrist and PA, lateral, and oblique views of the left hand FINDINGS: There is a triangular-shaped ossification adjacent to the base of the ulnar or medial side of the fifth metacarpal bone at the PENITENTIARY joint. This is new from prior exam 2013. Appearance is suggestive of avulsion fracture. This appears well-corticated and may not be acute. Clinical correlation recommended. No other fracture. Mild arthritis with joint space narrowing at the first PENITENTIARY joint. Joint spaces are otherwise normal. Soft tissues are otherwise normal. XR/XR hand wrist LT IMPRESSION: Question avulsion fracture of the base of the ulnar or medial side of the first metacarpal bone at the PENITENTIARY joint, age indeterminate. This is new in the interval from 2014 exam. Mild joint space narrowing at the first PENITENTIARY joint.
[2023-04-28 13:41] VITALS: BP 142/82; PULSE 73; RESP 18; TEMP 36.5; O2SAT 98; BMI 38.1
--- NOTE | 2023-04-28 13:41 | ED_ITS ---
HPI - Extremity Injury (Upper) General Chief Complaint: Extremity Injury, Upper Stated Complaint: Numbness/pain in left hand/Work injury Time Seen by Provider: 04/28/23 16:55 Source: patient Mode of arrival: ambulatory Limitations: no limitations History of Present Illness HPI narrative: Patient is a 47 year old assigned female at with a history of migraines presenting to the emergency department today with left thumb pain. Patient states that she got her left thumb stuck in a strap at work and hyperextended her thumb. Patient states that her thumb continues to hurt. Patient denies any numbness, tingling, dizziness, lightheadedness, abdominal pain, nausea, vomiting, fever, chills, blurry vision, double vision, loss of vision, chest pain, difficulty breathing, shortness of breath, back pain, night sweats, pain with urination, increased urinary frequency, increased urinary urgency, blood in his urine or stool, syncope or a near syncopal episode, bowel incontinence, bladder incontinence, bowel retention, bladder retention, or any other complaints at this time. MD complaint: injury to: left and finger (thumb) Place: work Severity: mild Severity scale (1-10): 3 Relieving factors: immobilization Exacerbating factors: movement of extremity Context: injury Associated symptoms: denies other symptoms Related Data Home Medications Medication Instructions Recorded Confirmed acetaminophen 500 mg tablet 1,000 mg PO Q6H PRN Pain 01/22/22 01/22/22 hrnfdop-odnygczguwloi-ppoxxqic 250 1 tab PO Q4-6H PRN Pain 01/22/22 01/22/22 mg-250 mg-65 mg tablet (Excedrin Migraine) ibuprofen 600 mg tablet 1 tab PO TID PRN Pain 01/22/22 01/22/22 Previous Rx's Medication Instructions Recorded vztgbldlvr-iobhqmaaythid-hicqrqto 1 cap PO Q6H PRN headache #20 caps 01/23/22 50 mg-300 mg-40 mg capsule (Fioricet) sumatriptan succinate 50 mg tablet 50 mg PO Q2H PRN migraine headache 01/23/22 (Imitrex) #10 tabs tramadol 50 mg tablet 50 mg PO Q6H PRN pain #20 tabs 01/23/22 dicyclomine 20 mg tablet 20 mg PO QID PRN abdominal pain 11/15/22 #20 tabs Allergies Allergy/AdvReac Type Severity Reaction Status Date / Time No Known Allergies Allergy Verified 01/22/22 22:12 Review of Systems Constitutional: Constitutional: Reports no additional constitutional complaints, Denies chills, Denies fever(s) and Denies night sweats Eyes: Eyes: Reports no additional eye complaints, Denies blurry vision, Denies change in vision, Denies diplopia, Denies eye discharge, Denies loss of vision and Denies eye pain ENT: Denies dizziness Cardiovascular: Cardiovascular: Reports no additional cardiovascular complaints, Denies chest pain, Denies lightheadedness, Denies Loss of Consciousness and Denies dyspnea Respiratory: Respiratory: Reports no additional respiratory complaints and D enies dyspnea Gastrointestinal: Gastrointestinal: Reports no additional gastrointestinal complaints, Denies abdominal pain, Denies melena, Denies hematochezia, Denies change in bowel habits and Denies change in stool character Genitourinary: Genitourinary: Denies hematuria, Denies urinary frequency, Denies dysuria, Denies urinary incontinence, Denies urinary hesitancy and Denies urinary urgency Musculoskeletal: Musculoskeletal: Reports no additional musculoskeletal complaints, Denies numbness and Denies tingling Comments: left thumb pain Neurologic: Denies dizziness, Denies loss of vision, Denies numbness and Denies tingling Psychiatric: Psychiatric: Reports no additional psychiatric complaints Endocrine: Endocrine: Reports no additional endocrine complaints Hematologic/Lymphatic: Hematologic/Lymphatic: Reports no additional hematologic/lymphatic complaints Allergic/Immunologic: Allergic/Immunologic: Reports no additional blue rgic/immunologic complaints PMFSH Past Medical History Attestation statement: The following information was validated with the patient. Source: old records reviewed and nursing notes reviewed Medical History BCP ( control pills) initiation Cervical cancer screening Gall bladder disease Migraines Potential exposure to STD Well woman exam with routine gynecological exam Surgical History History of bilateral tubal ligation History of reversal of tubal ligation Social History Social History Alcohol intake: never Patient Tobacco Use Status: Never used Tobacco Advance Directives: No Advance Directives Information Provided: No Gender identity: Female Physical Exam Vital Signs: Vital Signs: Last Vital Signs Temp 97.5 F 04/28/23 17:20 Pulse 78 04/28/23 17:20 Resp 18 04/28/23 17:20 BP 149/87 H 04/28/23 17:20 Pulse Ox 96 04/28/23 17:20 O2 Del Method Room Air 04/28/23 17:20 BMI result Body Mass Index 38.1 Const: General: cooperative, no acute distress, alert and awake Nutritional Appearance: well nourished Orientation/consciousness: patient oriented x3 Limitations: no limitations HEENT: Head: Yes normal to inspection and Yes atraumatic Ears: hearing grossly normal bilaterally and external ears normal General nose exam: Normal external nose present, no nasal discharge noted and no epistaxis Face and sinus: Yes normal facial exam, No abrasion and No laceration Mouth: Normal oral and palatal mucosa present, no drooling and no muffled voice Eyes: General: appearance normal, both eyes and all related structures Periorbital: periorbital findings normal Eyelids: Yes eyelids normal Conjunctivae: conjunctivae normal Pupils: Equal, round and reactive pupils pr esent EOM: EOMs intact bilaterally Neck: Neck: Yes normal visual inspection, Yes full ROM and Yes no lymphadenopathy Chest: Chest palpation & inspection: normal inspection of the chest Resp: Effort & Inspection: normal respiratory effort and able to speak in complete sentences GI: Inspection: Yes normal to inspection Neuro: General: patient oriented x3 and moves all extremities Cranial nerves: Yes Equal, round and reactive pupils present Cognition (Neuro): normal cognition Motor exam (neuro): 5/5 motor strength present throughout Sensory Exam: Normal double simultaneous stimulation for sensation Coordination: dyzetf-mb-wfpi test normal Extrem: General: Yes normal to inspection, Yes full ROM and Yes capillary refill normal Psych: Appearance: grossly normal Mental Status: mental status grossly normal Affect: normal affect Attitude: cooperative Thought process: Normal thought process present Thought content: Normal thought content present Insight: Good insight present (Psych) Course Course Course Narrative: This is an RME: Additional HPI, ROS, PE not included below will be deferred to primary provider. Patient is a 47-year-old female who presents emergency department for evaluation of left hand pain, predominantly thumb pain s/p injury at work. Finger was caught in a strap and hyperextended. With associated intermittent numbness. Plan: XR Medical Decision Making Medical Decision Making MDM Narrative: Patient is a 47 year old assigned female at with a history of migraines presenting to the emergency department today with left thumb pain. Patient's physical exam was unremarkable. Patient's left hand x-ray showed an avulsion fracture of the base of the 1st metacarpal bone. I explained my physical exam findings as well as all test results to the patient. I answered all questions asked by the patient. Patient's left thumb was placed in a thumb spica splint, without incident. Patient's PMS was intact prior to and after splint placement. I stressed the importance of the patient taking her medication as prescribed. I stressed the importance of the patient following up with her primary care provider and an orthopedic provider. I stressed the importance of the patient returning to the emergency department immediately if her symptoms were to worsen or if she were to develop any dizziness, shortness of breath, difficulty breathing, chest pain, blurry vision, loss of vision, nausea, vomiting, abdominal pain, fever, chills, back pain, or any other complaints. Patient varsha lized agreement and understanding with this treatment plan and discharge. Differential Diagnosis Differential Diagnoses: The differential diagnosis associated with the presentation includes Left thumb injury Left thumb fracture Left thumb sprain Left thumb strain Independent Interpretation I performed an independent interpretation of an: Plain X-Ray Interpretation: My interpretation is in agreement with the radiologist's impression of this imaging study. EXAMINATION: XR WRIST, LEFT XR HAND, LEFT CLINICAL INFORMATION: Injury? COMPARISON: Previous x-ray most recent October 2013 TECHNIQUE: PA, lateral, and oblique views of the left wrist and PA, lateral, and oblique views of the left hand FINDINGS: There is a triangular-shaped ossification adjacent to the base of the ulnar or medial side of the fifth metacarpal bone at the CUSTODIAL joint. This is new from prior exam 2013. Appearance is suggestive of avulsion fracture. This appears well-corticated and may not be acute. Clinical correlation recommended. No other fracture. Mild arthritis with joint space narrowing at the first CUSTODIAL joint. Joint spaces are otherwise normal. Soft tissues are otherwise normal. XR/XR hand wrist LT IMPRESSION: Question avulsion fracture of the base of the ulnar or medial side of the first metacarpal bone at the CUSTODIAL joint, age indeterminate. This is new in the interval from 2014 exam. Mild joint space narrowing at the first CUSTODIAL joint. Dictated By: Jimena Salomon MD Signed By: Electronically signed by Jimena Salomon MD 04/28/23 1524 Radiology Impression Discussion of test interpretation with radiology: I have reviewed the radiologist's reading. Procedures Orthopedic Splinting/Casting Injury #1: Side: left Upper Extremity Injury Location: finger (thumb) Upper Extremity Immobilizer: thumb spica Discharge Plan Discharge Clinical Impression: Avulsion fracture of thumb Patient Disposition: Home, Self-Care Instructions: Thumb Fracture (ED) Additional Instructions: Follow up with your primary care provider, an orthopedic provider, and given this was a work injury - you should follow up with [facility]. Return to the emergency department immediately if your symptoms worsen or if you develop any dizziness, shortness of breath, difficulty breathing, chest pain, blurry vision, loss of vision, nausea, vomiting, abdominal pain, fever, chills, back pain, or any other complaints. Keren un seguimiento con abdul proveedor de atenci?n primaria, un proveedor ortop?dico, y dado que se trat? de armaan lesi?n laboral, debe hacer un seguimiento con la conexi?n laboral. Regrese al departamento de emergencias de inmediato si linda s?ntomas empeoran o si presenta mareos, dificultad para respirar, dolor en el pecho, visi?n borrosa, p?rdida de la visi?n, n?useas, v?mitos, dolor abdominal, fiebre, escalofr?os, dolor de espalda o cualquier otra molestia. Prescriptions: No Action acetaminophen [Tylenol Ex Str Arthritis Pain] 500 mg Tablet 1,000 mg PO Q6H PRN (Reason: Pain) ibuprofen 600 mg tablet 1 tab PO TID PRN (Reason: Pain) Excedrin Migraine 250-250-65 mg Tablet 1 tab PO Q4-6H PRN (Reason: Pain) sumatriptan succinate [Imitrex] 50 mg tablet 50 mg PO Q2H PRN (Reason: migraine headache) Qty: 10 0RF Rx Instructions: do not exceed 2 doses per 24 hrs tramadol 50 mg tablet 50 mg PO Q6H PRN (Reason: pain) Qty: 20 0RF qxbtbwgbac-pxoivefzacyii-jvqr [Fioricet] 50-300-40 mg capsule 1 cap PO Q6H PRN (Reason: headache) Qty: 20 0RF dicyclomine 20 mg tablet 20 mg PO QID PRN (Reason: abdominal pain) Qty: 20 0RF [place]: [facility] [place] [facility] [Provider Group] (Call to establish and follow up with an orthopedic provider. Llame para establecer y hacer un seguimiento con un proveedor ortop?dico.) [facility] [Provider Group] (Call to establish and follow up with [facility]. Llame para establecer y dieudonne seguimiento a la conexi?n laboral.) Tara Shaikh MD [Primary Care Provider] - Stand Alone Forms: Work/School Release Interventions: ED Discharge Assessment Last Done: 04/28/23 17:54 Discharge Date/Time: 04/28/23 17:56 Print Language: Belgian
[2023-04-28 17:20] VITALS: BP 149/87; PULSE 78; RESP 18; TEMP 36.4; O2SAT 96
== END 2023-04-28 17:56 | disposition home or self-care (01) ==
PROVIDERS: Emergency Provider Emergency Medicine; PCP Internal Medicine
DX: S52.292A Other fracture of shaft of left ulna, initial encounter for closed fracture (principal); X50.1XXA Overexertion from prolonged static or awkward postures, initial encounter; Y93.89 Activity, other specified; Y92.099 Unspecified place in other non-institutional residence as the place of occurrence of the external cause; Y99.0 Civilian activity done for income or pay
CPT/HCPCS: 29125; 73110; 73130; 99283

== ENCOUNTER 2023-05-02 10:32 | Outpatient (REF) | payer MEDICAID, SELFPAY ==
--- NOTE | ~2023-05-02 | XR_ITS ---
EXAMINATION: XR FOOT, BILATERAL XR ANKLE, BILATERAL XR KNEE, BILATERAL XR HAND/WRIST, RIGHT CLINICAL INFORMATION: Rheumatoid arthritis. COMPARISON: Left hand of 04/28/2023, bilateral feet of 08/23/2020. TECHNIQUE: 3 views of both feet, 2 views of both ankles, 4 views of the right wrist and hand, and 4 views of each knee. FINDINGS: Left Foot: There is no evidence of acute fracture or dislocation of the left foot. Changes of enthesopathy are present. Achilles calcaneal spur is again seen. Joint spaces are maintained. Mild sclerosis about the talonavicular joint. No periarticular osteopenia is identified. No erosive changes are noted. No soft tissue calcifications identified. Left Ankle: There is no evidence of acute fracture or dislocation of the left ankle. Ankle mortise is intact. Mild soft tissue prominence. Right Foot: No acute fracture or dislocation evident. No destructive bony lesions. Joint spaces are maintained without erosive change. Small calcaneal spur seen site of insertion of the Achilles tendon. Right Ankle: There is no evidence of acute fracture or dislocation of the right ankle. Right ankle joint spaces maintained. Ankle mortise unremarkable. No erosive changes are evident. Some mild soft tissue prominence is present. Right Hand: There is no evidence of acute fracture or dislocation of the right hand. Minimal spurring about the 1st carpometacarpal joint is noted. No erosive changes are appreciated. There is a 2 mm calcification seen between the distal ulnar and triquetrum which may represent sequela of previous injury. There appears to be some radial spurring about the distal navicular. Right Knee: There is no evidence of acute fracture or dislocation of the right knee. No right knee effusion is identified. Right knee joint spaces maintained. No erosive change. Left Knee: There is no evidence of acute fracture or dislocation of the left knee. No left knee effusion is seen. There is minor spurring seen undersurface of the patella. A small spur is seen involving the tibial tuberosity without overlying edema. Joint spaces are maintained. No erosive change is identified. XR/XR ankle RT min 3V IMPRESSION: No evidence of erosive arthritides identified. Mild degenerative change right hand, left knee, and right foot.
[2023-05-02 12:29] LABS: MANUAL DIFF FLAG NO
[2023-05-02 13:53] LABS: Appearance Urine Clear; Color Urine Yellow; Glucose Urine UA Negative (Negative); Leukocyte Esterase Urine Negative (Negative); Nitrite Urine Negative (Negative); PH 5.5 (5.0-9.0); UMIC TRIGGER UA YES; Urine Blood Trace (Negative); Urine Ketones Negative (Negative); Urine Protein Negative (Neg-Trace)
[2023-05-02 13:58] LABS: Bacteria Urine 2+ (None Seen); Hyaline Casts Urine 0-2 /LPF (0-2); RBC Urine 0-2 /HPF (0-2); WBC Urine 0-5 /HPF (0-5)
[2023-05-02 14:00] LABS: Basophils Absolute Auto 0.1 X10*3/uL (0.0-0.2); Basophils Percent Auto 0.6 % (0-2); Eosinophils Absolute Auto 0.2 X10*3/uL (0.0-0.4); Eosinophils Percent Auto 2.4 % (0-4); Hematocrit 44.7 % (37.0-47.0); Hemoglobin 14.3 g/dl (12.0-16.0); Imm Gran Abs Auto 0.04 X10*3/uL (0.00-0.03); Imm Gran Pct Auto 0.5 % (0.0-0.4); Lymphocytes Absolute Auto 2.1 X10*3/uL (1.2-4.9); Mean Corpuscular Volume 84.5 fL (80.0-98.0); Mean Platelet Volume 10.9 fL (9.4-12.3); Monocytes Absolute Auto 0.6 X10*3/uL (0.1-1.2); Monocytes Percent Auto 8.1 % (2-11); Neutrophils Absolute Auto 4.9 x10*3/uL (2.0-8.3); Neutrophils Percent Auto 61.4 % (45-73); Platelet Count 316 X10*3/uL (160-400); Red Blood Count 5.29 X10*6/uL (4.20-5.50); Red Cell Distribution Width 12.6 % (11.0-16.0); White Blood Count 7.9 X10*3/uL (4.8-10.8)
[2023-05-02 14:35] LABS: Rheumatoid Factor < 13.0 IU/mL (<15.0)
[2023-05-02 14:39] LABS: Alanine Aminotransferase 12 U/L (0-31); Albumin Level 4.1 g/dL (3.5-5.0); Alkaline Phosphatase 112 U/L (39-117); Anion Gap 14 (12-20); Aspartate Amino Transferase 15 U/L (5-31); Bilirubin Total 0.6 mg/dL (0.0-1.0); Blood Urea Nitrogen 9 mg/dL (9-16); C Reactive Protein 0.98 mg/dL (< or = 0.50); Calcium 9.1 mg/dL (8.4-10.2); Carbon Dioxide 23 mmol/L (22-29); Chloride 109 mmol/L (96-108); Estimated Glomerular Filt Rate > 60; Glucose Random 87 mg/dL (60-115); Potassium 4.4 mmol/L (3.3-5.1); Sodium 142 mmol/L (135-145); Total Protein 7.5 g/dL (6.5-8.0)
[2023-05-02 14:43] LABS: Creatinine Urine 143.96 mg/dL; Total Protein Urine Random 15 mg/dL (<12)
[2023-05-02 15:07] LABS: Erythrocyte Sedimentation Rate 12 MM/HR (0-20)
[2023-05-03 08:38] LABS: HBS Num1 0.19 mIU/mL (0-7.99); HBc Num1 0.09 S/CO (0.00-0.79); HBsAGNum1 0.54 S/CO (0.00-0.99); Hepatitis A Antibody IgM 0.22 Index (0-0.79); Hepatitis B Core Antibody Nonreactive (Nonreactive); Hepatitis B Surface Antigen Negative (Negative); ~HepC Num1 0.13 S/CO (0.00-0.79); ~Hepatitis A Antibody IgM Nonreactive (Nonreactive); ~Hepatitis B Surface Antibody NONREACTIVE (Nonreactive); ~Hepatitis C Antibody Nonreactive (Nonreactive)
[2023-05-04 23:59] LABS: TS Negative Control Passed; TS Panel A 0; TS Panel B 0; TS Positive Control Passed; TSpotTB Negative (Negative)
[2023-05-05 17:28] LABS: Prot Elec - Albumin 3.8 g/dL (3.8-4.8); Prot Elec - Alpha1 0.3 g/dL (0.2-0.3); Prot Elec - Alpha2 0.8 g/dL (0.5-0.9); Prot Elec - Beta 1 0.4 g/dL (0.4-0.6); Prot Elec - Beta 2 0.5 g/dL (0.2-0.5); Prot Elec - Gamma 1.3 g/dL (0.8-1.7); Prot Elec - Total Protein 7.1 g/dL (6.1-8.1)
[2023-05-06 20:59] LABS: Complement C3 182 mg/dL (83-193)
[2023-05-07 12:13] LABS: Cyclic Citrullinated Peptide <16 UNITS
[2023-05-08 19:48] LABS: Anti DNA DS Antibody <1 IU/mL; Antibody to SS-A Antigen <1.0 NEG AI (<1.0 NEG); Antibody to SS-B Antigen <1.0 NEG AI (<1.0 NEG); SM/Ribonucleoprotein Ab <1.0 NEG AI (<1.0 NEG); Smith Protein <1.0 NEG AI (<1.0 NEG)
[2023-05-10 16:08] LABS: IgA 322 mg/dL (47-310); IgG 1450 mg/dL (600-1640); IgM 113 mg/dL (50-300)
[2023-05-13 11:15] LABS: Anti Nuclear Antibody Screen POSITIVE (NEGATIVE)
== END 2023-05-02 10:33 | disposition home or self-care (01) ==
LOC: HO.LAB 10:32
PROVIDERS: PCP Internal Medicine; Visit Provider Student in an Organized Health Care Education/Training Program
DX: Z11.7 Encounter for testing for latent tuberculosis infection (principal); Z11.59 Encounter for screening for other viral diseases; M06.9 Rheumatoid arthritis, unspecified; M32.9 Systemic lupus erythematosus, unspecified; M25.50 Pain in unspecified joint; S62.502A Fracture of unspecified phalanx of left thumb, initial encounter for closed fracture
CPT/HCPCS: 36415; 73110; 73130; 73564; 73610; 73630; 80053; 81001; 82784; 84156; 84165; 85025; 85652; 86038; 86039; 86140; 86160; 86200; 86225; 86235; 86334; 86431; 86481; 86704; 86706; 86709; 86803; 87340; 99202; 99204

== ENCOUNTER 2023-05-02 10:32 | Outpatient (AMB) | payer MEDICAID, SELFPAY ==
--- NOTE | 2023-05-02 10:35 | MHC.OFFVIS ---
Intake Vital Signs 05/02/23 10:36 Height 5 ft 3 in Weight 234 lb BMI 41.4 BP 134/88 Blood Pressure Location Rt brachial Position Sitting Respiration 16 Pulse 98 Pulse Source Pulse Oximeter Temp 98.4 F Temp Source Temporal Artery Scan Pulse Oximetry (%) 97 Oxygen Delivery Method Room Air Intake Visit Reasons: Arthralgia Intake Note: Patient comes in for initial visit. Medical Billing Coordinator Required: Yes Medical Billing Coordinator Name: Jesus [id number] Allergies No Known Allergies Allergy (Verified 05/02/23 10:39) Medication List - Last Reconciled 05/02/23 by Aubree Mitchell MD acetaminophen 1,000 mg PO Q6H PRN svwoouk-qqqqwduepunyk-bafulhoo 250-250-65 mg (Excedrin Migraine) 1 tab PO Q4-6H PRN ledxkfhwxa-hbgvvjyivjqbc-sapj 50-300-40 mg (Fioricet) 1 cap PO Q6H PRN diclofenac potassium 50 mg PO TID dicyclomine 20 mg PO QID PRN fluticasone propionate 50 mcg/actuation 0 mcg intranasal ibuprofen 1 tab PO TID PRN pseudoephedrine HCl ER (Sudafed 12 Hour) 120 mg PO Q12H sumatriptan succinate 0 mg PO topiramate 25 mg PO BEDTIME HPI HPI Comments History of Present Illness Details This is a 47-year-old female presents for evaluation of diffuse pain. Patient states that she gets intermittent pain and stiffness of her hands, ankles, feet, back. Morning stiffness lasting from 15 minutes to 1 hour. She was told that she might have rheumatoid arthritis in the past but it was not conclusive. She was also told that she might have fibromyalgia, she was started on a medication for fibromyalgia but it caused side effect and patient stopped it. A few days ago patient sustained an avulsion fracture of her left thumb, she went to the emergency room and she now has a thumb spica splint, she has an appointment with Orthopedics today. She is unaware of any family history of autoimmune rheumatic disease. Denies any history of recurrent miscarriages. Denies history of DVT/PE REPLACED BY [facility] Medical History (Updated 05/02/23 @ 11:32 by Aubree Mitchell MD) BCP ( control pills) initiation Cervical cancer screening Gall bladder disease Migraines Potential exposure to STD Well woman exam with routine gynecological exam Surgical History History of bilateral tubal ligation History of reversal of tubal ligation Social History Alcohol intake: never Patient Tobacco Use Status: Never used Tobacco Current occupational status: employed Current occupation: [employer] Gender identity: Female Female Reproductive History Menstrual Age of Menarche: 10 Total pregnancies: 6 Full term: 6 Ab spontaneous: 0 Review of Systems Const Reports headache(s) ENT Reports headache(s) Musc Reports arthralgias and Reports stiffness Neuro Reports headache(s) Physical Exam Vital Signs: Last Vital Signs Temp 98.4 F 05/02/23 10:36 Pulse 98 05/02/23 10:36 Resp 16 05/02/23 10:36 BP 134/88 05/02/23 10:36 Pulse Ox 97 05/02/23 10:36 Oxygen Delivery Method Room Air 05/02/23 10:36 BMI result Body Mass Index 41.4 Const General: cooperative, healthy appearing and comfortable Nutritional Appearance: obese morbidly obese Orientation/consciousness: patient oriented x3 Limitations: no limitations HEENT Head: Yes normocephalic and Yes atraumatic Mouth: moist mucous membranes Resp Effort & Inspection: normal respiratory effort and able to speak in complete sentences Auscultation: clear to auscultation bilaterally Cardio Rate: regular rate Rhythm: regular rhythm GI Inspection: No distended Palpation (GI): Soft to palpation and nontender Neuro General: patient oriented x3 Extrem Other: Left hand in a splint Diffusely tender right hand PIP is without swelling Normal range of motion of both elbows and shoulders without pain Right knee pain with full flexion and full extension Left knee pain with full extension Left ankle tenderness and swelling anteriorly Negative MTP squeeze test bilaterally No significant fibromyalgia tender points Assessment & Plan Assessment & Plan (1) Polyarthralgia: Code(s): M25.50 - Pain in unspecified joint Plan: This is a 47-year-old female who presents for evaluation of diffuse pain. Patient is complaining of migratory joint pain affecting her hands, wrists, ankles, feet, back. She has some features of inflammatory arthritis versus osteoarthritis. Will order comprehensive serology to screen for underlying autoimmune rheumatic disease. Check x-rays of involved joints Follow-up in 1 month Plan I spent 46 minutes reviewing patient's chart, evaluating patient, ordering diagnostic workup, counseling patient and documenting in the chart Orders: Orders Cyclic Citrullinated Peptide Today M06.9 - Rheumatoid arthritis, unspecified Comprehensive Met. Panel Today M06.9 - Rheumatoid arthritis, unspecified C Reactive Protein Today M06.9 - Rheumatoid arthritis, unspecified Rheumatoid Factor Today M06.9 - Rheumatoid arthritis, unspecified Complete Blood Count Auto Diff Today M06.9 - Rheumatoid arthritis, unspecified Erythrocyte Sedimentation Rate Today M06.9 - Rheumatoid arthritis, unspecified Immunofixation Pnl, Serum Today M06.9 - Rheumatoid arthritis, unspecified Protein Electrophoresis, Serum Today M06.9 - Rheumatoid arthritis, unspecified Hepatitis A,B,C Profile Today Z11.59 - Encounter for screening for other viral diseases T Spot TB Today Z11.7 - Encounter for testing for latent tuberculosis infection XR ankle LT min 3V Today M06.9 - Rheumatoid arthritis, unspecified XR ankle RT min 3V Today M06.9 - Rheumatoid arthritis, unspecified XR foot LT min 3V Today M06.9 - Rheumatoid arthritis, unspecified XR foot RT min 3V Today M06.9 - Rheumatoid arthritis, unspecified XR hand wrist RT Today M06.9 - Rheumatoid arthritis, unspecified XR knee LT 3V Today M06.9 - Rheumatoid arthritis, unspecified XR knee RT 3V Today M06.9 - Rheumatoid arthritis, unspecified XR knee standing BI Today M06.9 - Rheumatoid arthritis, unspecified Protein Creatinine Ratio, Ur Today M32.9 - Systemic lupus erythematosus, unspecified ZOFIA Reflex Titer and Pattern Today M32.9 - Systemic lupus erythematosus, unspecified Complement C3 Today M32.9 - Systemic lupus erythematosus, unspecified Complement C4 Today M32.9 - Systemic lupus erythematosus, unspecified Anti DNA DS Antibody Today M32.9 - Systemic lupus erythematosus, unspecified Anti Extractable Nuclear Ag Today M32.9 - Systemic lupus erythematosus, unspecified Sjogren's Antibodies Today M32.9 - Systemic lupus erythematosus, unspecified UA w Microscopic Today M32.9 - Systemic lupus erythematosus, unspecified Coding Level of Care Code New Pt Level 4 (73811) Diagnoses Polyarthralgia M25.50
[2023-05-02 10:36] VITALS: BP 134/88; PULSE 98; RESP 16; TEMP 36.9; O2SAT 97; BMI 41.4
== END 2023-05-02 11:23 | disposition home or self-care (01) ==
PROVIDERS: PCP Internal Medicine; Visit Provider Student in an Organized Health Care Education/Training Program
DX: M25.50 Pain in unspecified joint (principal)
CPT/HCPCS: 99204

== ENCOUNTER 2023-05-02 11:29 | Outpatient (AMB) | payer MEDICAID, SELFPAY ==
--- NOTE | 2023-05-02 11:32 | A.OFFVIS_ITS ---
Intake Intake Visit Reasons: FC-avulsion fx lt 1st metacarpal bone Intake Note: Noris is a 47 year old right hand dominant female who presents today s/p left thumb fx, DOI 04/28/23. Patient states that she got her left thumb stuck in a strap at work and hyperextend her thumb. She states some discomfort and some throbbing pain. Having off and on numbness and tingling. Allergies No Known Allergies Allergy (Verified 05/02/23 11:33) HPI FC-avulsion fx lt 1st metacarpal bone HPI Details 47-year-old right hand dominant female who presents in the office today, as a new patient, for an evaluation of left thumb pain. The patient presented to the ED on 04/28/2023 status post getting her thumb stuck in a strap at work causing it to hyper-extended. X-rays of the left hand were obtained. She was placed in a thumb spica splint and referred to orthopedics. She claims to have some discomfort and some throbbing. She confirms intermittent numbness and tingling. This is a work related injury. [facility] Medical History BCP ( control pills) initiation Cervical cancer screening Gall bladder disease Migraines Potential exposure to STD Well woman exam with routine gynecological exam Surgical History History of bilateral tubal ligation History of reversal of tubal ligation Social History Alcohol intake: never Patient Tobacco Use Status: Never used Tobacco Current occupational status: employed Current occupation: [employer] Gender identity: Female Female Reproductive History Menstrual Age of Menarche: 10 Review of Systems Const All systems reviewed & are unremarkable except as noted in HPI and below Physical Exam Const General: cooperative and no acute distress Orientation/consciousness: patient oriented x3 Resp Effort & Inspection: normal respiratory effort and able to speak in complete sentences Cardio Rate: regular rate Peripheral pulses: Peripheral pulses 2+ throughout GI Palpation (GI): Soft to palpation Skin General skin exam: no rashes or lesions noted Lesions: no lesions Rashes: no rashes Neuro General: patient oriented x3 Extrem Other: Left thumb: Extreme tenderness to palpation over all anatomical landmarks of the left thumb from the IP joint to the distal radius. Able to slightly flex and extend at the IP joint and CMC. Denies numbness and tingling. Capillary refill is brisk. Office Procedures Fracture Care Fracture Billing Code: Fracture Billing Code Assessment & Plan Assessment & Plan (1) Avulsion fracture of left thumb: Code(s): S62.502A - Fracture of unspecified phalanx of left thumb, initial encounter for closed fracture Plan Ms. Koenig is a 47-year-old right hand dominant female who presents in the office today, as a new patient, for an evaluation of left thumb pain. The patient presented to the ED on 04/28/2023 status post getting her thumb stuck in a strap at work causing it to hyper-extended. X-rays of the left hand were obtained. She was placed in a thumb spica splint and referred to orthopedics. She claims to have some discomfort and some throbbing. She confirms intermittent numbness and tingling. This is a work related injury. The patient will be referred to occupational therapy to work on gentle ROM. I also demonstrated some exercises for her to work on. She demonstrated understanding. She will be given a work note stating no use of the left hand until follow up. Follow up will be in 2 weeks for a ROM check, or sooner if needed. X-rays of the left hand, obtained on 04/28/2023, revealed: Question avulsion fracture of the base of the ulnar or medial side of the first metacarpal bone at the USP joint, age indeterminate. This is new in the interval from 2014 exam. Mild joint space narrowing at the first USP joint. Orders: Orders OT Evaluation and Treatment Today S62.502A - Fracture of unspecified phalanx of left thumb, initial encounter for closed fracture Patient Instructions: Scribed for Maria Luz Mclean PA-C by Priscilla Monson medical device, on 05/02/2023 at 11:36 am, EST. Your attestation Coding Level of Care Code New Pt Level 4 (10083) Diagnoses Avulsion fracture of left thumb S62.502A CPT Codes Fracture Care - Fracture Billing Code: Fracture Billing Code ([id number])
== END 2023-05-02 12:19 | disposition home or self-care (01) ==
PROVIDERS: PCP Internal Medicine; Visit Provider Physician Assistant
DX: S62.502A Fracture of unspecified phalanx of left thumb, initial encounter for closed fracture (principal)
CPT/HCPCS: 99204

== ENCOUNTER 2023-05-16 12:45 | Outpatient (AMB) | payer MEDICAID, SELFPAY ==
--- NOTE | 2023-05-16 12:54 | A.OFFVIS_ITS ---
Intake Vital Signs 05/16/23 13:01 Height 5 ft 3 in Weight 234 lb BMI 41.4 Handedness Right Intake Visit Reasons: OV - left thumb fx, DOI 04/28/23. Intake Note: Noris is a 47 year old right hand dominant female who presents today s/p left thumb fx, DOI 04/28/23. Patient states she is still having pain with moments and some stiffness. Patient reports not being able to go to her appointment for OT due to personal reasons and PT told her that they will give her a new appointment. She states that her ROM is improving slowly. Denies numbness and tingling Allergies No Known Allergies Allergy (Verified 05/16/23 13:01) HPI OV - left thumb fx, DOI 04/28/23. HPI Details 47-year-old right hand dominant female, who is Egyptian speaking, presents in the office today for a follow up of left thumb avulsion fracture, which occurred on 04/28/2023 status post getting her thumb stuck in a strap at work causing it to hyper-extended. The patient claims to have pain with movement and some stiffness. She states she was unable to go to her occupational therapy appointment due to personal reasons. She states occupational therapy said they would give her another appointment. She reports her ROM is improving slowly. She denies numbness or tingling. Patient works in [employer]. This is a work related injury. COUNTS INCLUDE 234 BEDS AT THE [facility] Medical History BCP ( control pills) initiation Cervical cancer screening Gall bladder disease Migraines Potential exposure to STD Well woman exam with routine gynecological exam Surgical History History of bilateral tubal ligation History of reversal of tubal ligation Social History Alcohol intake: never Patient Tobacco Use Status: Never used Tobacco Current occupational status: employed Current occupation: [employer] Gender identity: Female Female Reproductive History Menstrual Age of Menarche: 10 Review of Systems Const All systems reviewed & are unremarkable except as noted in HPI and below Physical Exam Vital Signs: BMI result Body Mass Index 41.4 Const General: cooperative, healthy appearing and no acute distress Resp Effort & Inspection: normal respiratory effort and able to speak in complete sentences Cardio Rate: regular rate Peripheral pulses: Peripheral pulses 2+ throughout GI Palpation (GI): Soft to palpation Skin Lesions: no lesions Rashes: no rashes Extrem Other: Left thumb: Normal to inspection. No ecchymosis, erythema, or edema. Able to flex and extend at the IP and CMC joint with mild stiffness. Thumb repositioning and opsitioning with difficulty. Slight tenderness to palpation over the first dorsal compartment. Sensation intact. Capillary refill is brisk. Assessment & Plan Assessment & Plan (1) Avulsion fracture of left thumb: Code(s): S62.502A - Fracture of unspecified phalanx of left thumb, initial encounter for closed fracture Plan Ms. Koenig is a 47-year-old right hand dominant female, who is Egyptian speaking, presents in the office today for a follow up of left thumb avulsion fracture, which occurred on 04/28/2023 status post getting her thumb stuck in a strap at work causing it to hyper-extended. The patient claims to have pain with movement and some stiffness. She states she was unable to go to her occupational therapy appointment due to personal reasons. She states occupational therapy said they would give her another appointment. She reports her ROM is improving slowly. She denies numbness or tingling. Patient works in [employer]. This is a work related injury. The patient was given a comfort cool thumb brace, off the shelf, while in the office today. I re-educated the patient on the importance of occupational therapy to work on ROM and stiffness. She was given a work note stating she will remain out of work until her follow up. Follow up will be in 2 weeks for a ROM check, or sooner if needed. X-rays of the left hand which were obtained while in the office today and were reviewed by me, Maria Luz Mclean PA-C, revealed routine healing of a left thumb avultion fracture. Orders: Orders XR hand LT min 3V Today M79.643 - Pain in unspecified hand Patient Instructions: Scribed for Maria Luz Mclean PA-C by Priscilla Monson medical certification specialist, on 05/16/2023 at 12:47 pm, EST. Coding Level of Care Code Global (35845) Diagnoses Avulsion fracture of left thumb S62.502A
[2023-05-16 13:01] VITALS: BMI 41.4
== END 2023-05-16 13:17 | disposition home or self-care (01) ==
PROVIDERS: PCP Internal Medicine; Visit Provider Physician Assistant
DX: Z04.2 Encounter for examination and observation following work accident (principal); S62.502A Fracture of unspecified phalanx of left thumb, initial encounter for closed fracture

== ENCOUNTER 2023-05-16 12:51 | Outpatient (REF) | payer MEDICAID, SELFPAY ==
--- NOTE | ~2023-05-16 | XR_ITS ---
EXAMINATION: XR HAND, LEFT CLINICAL INFORMATION: Pain COMPARISON: Hand and wrist radiographs 10/29/2022 TECHNIQUE: PA, lateral, and oblique views of the left hand. FINDINGS: No new acute fracture or dislocation. Again seen is a possible subtle age-indeterminate fracture of the medial aspect of the ulnar aspect of the base of the first metacarpal. Mild degenerative changes of the first carpometacarpal joint with borderline loss of joint space. Soft tissues are unremarkable. XR/XR hand LT min 3V IMPRESSION: 1. Again seen is a possible subtle age-indeterminate fracture of the medial aspect of the ulnar aspect of the base of the first intercarpal. Correlate with point tenderness. 2. Mild degenerative changes of the first carpometacarpal joint with borderline loss of joint space.
== END 2023-05-16 12:52 | disposition home or self-care (01) ==
LOC: HO.HOSX 12:51
PROVIDERS: Visit Provider Physician Assistant
DX: S62.502D Fracture of unspecified phalanx of left thumb, subsequent encounter for fracture with routine healing (principal)
CPT/HCPCS: 73130; 99214

== ENCOUNTER 2023-05-31 09:13 | Outpatient (AMB) | payer MEDICAID, SELFPAY ==
[2023-05-31 09:17] VITALS: BMI 41.4
--- NOTE | 2023-05-31 09:17 | MHC.OFFVIS ---
Intake Vital Signs 05/31/23 09:17 Height 5 ft 3 in Weight 234 lb BMI 41.4 Intake Visit Reasons: OV - left thumb fx, DOI 04/28/23. Intake Note: Noris is a 47 year old right hand dominant female who presents for a ROM check s/p left thumb fx, DOI 04/28/23. Patient states she cont's to have pain in thumb and now is locking. States while doing O.T her thumb locked and was advise from her O.T to mentioned it for todays visit. Allergies No Known Allergies Allergy (Verified 05/31/23 09:25) HPI OV - left thumb fx, DOI 04/28/23. HPI Details 47-year-old right hand dominant female, who is Palestinian speaking, presents in the office today for a ROM check and a follow up of left thumb avulsion fracture, which occurred on 04/28/2023 status post getting her thumb stuck in a strap at work causing it to hyper-extended. The patient reports she continues to have pain in the left thumb and it is now locking. She confirms participating in occupational therapy and states this causes her thumb to lock. She was instructed by the occupational therapist to discuss this at today?s appointment. [facility] Medical History BCP ( control pills) initiation Cervical cancer screening Gall bladder disease Migraines Potential exposure to STD Well woman exam with routine gynecological exam Surgical History History of bilateral tubal ligation History of reversal of tubal ligation Social History Alcohol intake: never Patient Tobacco Use Status: Never used Tobacco Current occupational status: employed Current occupation: [employer] Gender identity: Female Female Reproductive History Menstrual Age of Menarche: 10 Review of Systems Const All systems reviewed & are unremarkable except as noted in HPI and below Physical Exam Vital Signs: BMI result Body Mass Index 41.4 Const General: cooperative, healthy appearing and no acute distress Resp Effort & Inspection: normal respiratory effort and able to speak in complete sentences Cardio Rate: regular rate Peripheral pulses: Peripheral pulses 2+ throughout GI Palpation (GI): Soft to palpation Skin Lesions: no lesions Rashes: no rashes Extrem Other: Left thumb: Normal to inspection. No ecchymosis, erythema, or edema. Able to flex and extend at the IP and CMC joint with mild stiffness. Thumb repositioning and opsitioning with difficulty. Slight tenderness to palpation over the first dorsal compartment. Sensation intact. Capillary refill is brisk. Active trigger finger locking left thumb. Assessment & Plan Assessment & Plan (1) Avulsion fracture of left thumb: Code(s): S62.502A - Fracture of unspecified phalanx of left thumb, initial encounter for closed fracture (2) Trigger finger of left thumb: Code(s): M65.312 - Trigger thumb, left thumb Plan Ms. Koenig is a 47-year-old right hand dominant female, who is Palestinian speaking, presents in the office today for a ROM check and a follow up of left thumb avulsion fracture, which occurred on 04/28/2023 status post getting her thumb stuck in a strap at work causing it to hyper-extended. The patient reports she continues to have pain in the left thumb and it is now locking. She confirms participating in occupational therapy and states this causes her thumb to lock. She was instructed by the occupational therapist to discuss this at today?s appointment. The patient is going to follow up with Dr. Vallejo for further evaluation of possible trigger finger release left thumb. Follow up will be with Dr. Vallejo, or sooner if needed. Patient Instructions: Scribed for Maria Luz Mclean PA-C by Priscilla Monson medical authorization specialist, on 05/31/2023 at 9:14 am, EST. Coding Level of Care Code Est Pt Level 3 (13493) Diagnoses Avulsion fracture of left thumb S62.502A Trigger finger of left thumb M65.312
== END 2023-05-31 09:25 | disposition home or self-care (01) ==
PROVIDERS: PCP Internal Medicine; Visit Provider Physician Assistant
DX: S62.502A Fracture of unspecified phalanx of left thumb, initial encounter for closed fracture (principal); M65.312 Trigger thumb, left thumb
CPT/HCPCS: 99213

== ENCOUNTER → 2023-05-31 09:13 | Outpatient (BNVA) | payer MEDICAID, SELFPAY | PROVIDERS: PCP Internal Medicine; Visit Provider Physician Assistant | DX: S62.502A Fracture of unspecified phalanx of left thumb, initial encounter for closed fracture (principal); W31.89XA Contact with other specified machinery, initial encounter; Y93.89 Activity, other specified; Y92.69 Other specified industrial and construction area as the place of occurrence of the external cause; Y99.8 Other external cause status; M65.312 Trigger thumb, left thumb | CPT/HCPCS: 99213 ==

== ENCOUNTER 2023-06-06 11:28 | Outpatient (AMB) | payer MEDICAID, SELFPAY ==
--- NOTE | 2023-06-06 11:39 | MHC.OFFVIS ---
Intake Vital Signs 06/06/23 11:41 Height 5 ft 3 in Weight 233 lb 14.567 oz BMI 41.4 BP 134/78 Blood Pressure Location Rt brachial Position Sitting Pulse 88 Pulse Source Pulse Oximeter Temp 98.0 F Temp Source Skin Pulse Oximetry (%) 99 Intake Visit Reasons: OA/RA Intake Note: Pt seen today for follow up. C/o pain and swelling in hands and feet. Left thumb trigger finger saw ortho, doing OT Professional Architect Required: Yes Professional Architect Name: Carol [email or web address] Information Interpreted: clinical only Accompanied by: Self / Same As Patient Allergies No Known Allergies Allergy (Verified 06/06/23 11:45) Medication List - Last Reconciled 06/06/23 by Aubree Mitchell MD acetaminophen 1,000 mg PO Q6H PRN [id number] 250-250-65 mg (Excedrin Migraine) 1 tab PO Q4-6H PRN pffkhntebr-jiwacjjufmaau-ezsh 50-325-40 mg 1 tab PO Q6H PRN cyclobenzaprine 10 mg PO TID diclofenac potassium 50 mg PO TID dicyclomine 20 mg PO QID PRN dicyclomine 10 mg PO QID fluticasone propionate 50 mcg/actuation 0 mcg intranasal ibuprofen 1 tab PO TID PRN naproxen 500 mg PO BID pseudoephedrine HCl ER (Sudafed 12 Hour) 120 mg PO Q12H sumatriptan succinate 0 mg PO topiramate 25 mg PO BEDTIME HPI HPI Comments History of Present Illness Details Patient returns for follow-up after completion of her blood work and x-rays. She was evaluated by Orthopedics and was told she has trigger finger of her left thumb. She was referred to see hand surgery. Patient continues to get intermittent pain and swelling of different joints including her left hand, left wrist, ankles, knees. She showed me a picture of her swollen ankle that was painful. Initial history: This is a 47-year-old female presents for evaluation of diffuse pain. Patient states that she gets intermittent pain and stiffness of her hands, ankles, feet, back. Morning stiffness lasting from 15 minutes to 1 hour. She was told that she might have rheumatoid arthritis in the past but it was not conclusive. She was also told that she might have fibromyalgia, she was started on a medication for fibromyalgia but it caused side effect and patient stopped it. A few days ago patient sustained an avulsion fracture of her left thumb, she went to the emergency room and she now has a thumb spica splint, she has an appointment with Orthopedics today. She is unaware of any family history of autoimmune rheumatic disease. Denies any history of recurrent miscarriages. Denies history of DVT/PE [facility] Medical History BCP ( control pills) initiation Cervical cancer screening Gall bladder disease Migraines Potential exposure to STD Well woman exam with routine gynecological exam Surgical History History of bilateral tubal ligation History of reversal of tubal ligation Social History Alcohol intake: never Patient Tobacco Use Status: Never used Tobacco Current occupational status: employed Current occupation: [employer] Gender identity: Female Female Reproductive History Menstrual Age of Menarche: 10 Review of Systems [facility] [place] Reports arthralgias and Reports stiffness Physical Exam Vital Signs: Last Vital Signs Temp 98.0 F 06/06/23 11:41 Pulse 88 06/06/23 11:41 BP 134/78 06/06/23 11:41 Pulse Ox 99 06/06/23 11:41 BMI result Body Mass Index 41.4 Const General: cooperative, healthy appearing and comfortable Nutritional Appearance: obese morbidly obese Orientation/consciousness: patient oriented x3 Limitations: no limitations HEENT Head: Yes normocephalic and Yes atraumatic Mouth: moist mucous membranes Resp Effort & Inspection: normal respiratory effort and able to speak in complete sentences Neuro General: patient oriented x3 Extrem Other: Left hand in a splint Left wrist tenderness with patient and pain with full flexion next Right knee pain with full flexion and full extension Left knee pain with full extension Assessment & Plan Assessment & Plan (1) Polyarthralgia: Code(s): M25.50 - Pain in unspecified joint Plan: This is a 47-year-old female who presents for evaluation of diffuse pain. Patient is complaining of migratory joint pain affecting her hands, wrists, ankles, feet, back. She has some features of inflammatory arthritis versus osteoarthritis. Serology is unremarkable except for ZOFIA 1-80 speckled, RF/CCP negative, mildly elevated CRP. Start prednisone therapeutic trial and monitor response. Follow-up in 1 month Plan I spent 26 minutes reviewing patient's chart, evaluating patient, ordering diagnostic workup, counseling patient and documenting in the chart Medications: New prednisone Take 4 tabs by mouth once daily with breakfast for 1 week then 3 tabs daily for 1 week then 2 tabs daily for 1 week then 1 tab daily for 1 week then stop 70 tabs 0RF Coding Level of Care Code Est Pt Level 4 (19768) Diagnoses Polyarthralgia M25.50
[2023-06-06 11:41] VITALS: BP 134/78; PULSE 88; TEMP 36.7; O2SAT 99; BMI 41.4
== END 2023-06-06 12:18 | disposition home or self-care (01) ==
PROVIDERS: PCP Internal Medicine; Visit Provider Student in an Organized Health Care Education/Training Program
DX: M25.50 Pain in unspecified joint (principal)
CPT/HCPCS: 99214

== ENCOUNTER → 2023-06-06 11:28 | Outpatient (BNVA) | payer MEDICAID, SELFPAY | PROVIDERS: PCP Internal Medicine; Visit Provider Student in an Organized Health Care Education/Training Program | DX: M65.312 Trigger thumb, left thumb (principal); M25.50 Pain in unspecified joint; S63.105A Unspecified dislocation of left thumb, initial encounter; X58.XXXA Exposure to other specified factors, initial encounter; Y93.9 Activity, unspecified; Y92.9 Unspecified place or not applicable; Y99.9 Unspecified external cause status | CPT/HCPCS: 99212 ==

== ENCOUNTER 2023-06-19 18:58 | Emergency (ER) | payer MEDICAID, SELFPAY ==
--- NOTE | ~2023-06-19 | XR_ITS ---
EXAMINATION: XR SHOULDER, LEFT CLINICAL INFORMATION: Pain after fall COMPARISON: None available. TECHNIQUE: Four views of the left shoulder. FINDINGS: No acute visible fracture or dislocation. Joint spaces and alignment are maintained. Soft tissues are unremarkable. Visualized portions of the left chest are unremarkable. XR/XR shoulder LT min 2V IMPRESSION: No acute visible fracture or dislocation.
--- NOTE | ~2023-06-19 | XR_ITS ---
EXAMINATION: XR LUMBOSACRAL SPINE CLINICAL INFORMATION: Pain after fall COMPARISON: Lumbar spine radiograph from 11/23/2014 TECHNIQUE: Three views of the lumbosacral spine. FINDINGS: 5 nonrib-bearing lumbar-type vertebral bodies. Mild multilevel degenerative changes with osteophyte formation and facet arthropathy. Vertebral body with disc space are otherwise maintained. Posterior elements are intact. Paraspinal soft tissues are unremarkable. Visualized bowel gas is unremarkable. XR/XR lumbar spine 2-3V IMPRESSION: 1. No acute fracture or dislocation. 2. Mild multilevel degenerative changes.
[2023-06-19 19:31] VITALS: BP 138/84; PULSE 87; RESP 16; TEMP 36.9; O2SAT 98; BMI 41.9
--- NOTE | 2023-06-19 19:32 | ED_ITS ---
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 She denies any head strike or loss of consciousness and states that she drove back that evening and had some difficulty getting into the emergency room today but continued to have left shoulder discomfort as well as back discomfort. Related Data Home Medications Medication Instructions Recorded Confirmed acetaminophen 500 mg tablet 1,000 mg PO Q6H PRN Pain 01/22/22 05/02/23 uynvcau-djshnwtcpgvqo-tawepvyt 250 1 tab PO Q4-6H PRN Pain 01/22/22 05/02/23 mg-250 mg-65 mg tablet (Excedrin Migraine) fluticasone propionate 50 0 mcg intranasal 05/02/23 05/02/23 mcg/actuation nasal spray,suspension pseudoephedrine HCl 120 mg 120 mg PO Q12H 05/02/23 05/02/23 tablet,extended release (Sudafed 12 Hour) sumatriptan succinate 100 mg tablet 0 mg PO 05/02/23 05/02/23 topiramate 25 mg tablet 25 mg PO BEDTIME 05/02/23 05/02/23 fqrxkbzewn-wcefjlzsuzlzk-rqvluefk 1 tab PO Q6H PRN headache 06/06/23 50 mg-325 mg-40 mg tablet cyclobenzaprine 10 mg tablet 10 mg PO TID 06/06/23 dicyclomine 10 mg capsule 10 mg PO QID 06/06/23 Previous Rx's Medication Instructions Recorded dicyclomine 20 mg tablet 20 mg PO QID PRN abdominal pain 11/15/22 #20 tabs prednisone 5 mg tablet See Rx Instructions PO .COMPLEX 06/06/23 #70 tabs Allergies Allergy/AdvReac Type Severity Reaction Status Date / Time No Known Allergies Allergy Verified 06/06/23 11:45 Review of Systems Review of Systems: Pertinent positives and negatives as stated in HPI PMFSH Past Medical History Source: nursing notes reviewed Medical History BCP ( control pills) initiation Cervical cancer screening Gall bladder disease Migraines Potential exposure to STD Well woman exam with routine gynecological exam Surgical History History of bilateral tubal ligation History of reversal of tubal ligation Social History Social History Alcohol intake: never Patient Tobacco Use Status: Never used Tobacco Advance Directives: No Advance Directives Information Provided: No Current occupational status: employed 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 GENERAL: Well developed, well nourished, in no acute distress. HEAD: Normocephalic/atraumatic EYES: PERRLA, EOMI EARS: Ext canals without abnormality NOSE: Nares patent bilateral OROPHARYNX: no oral lesions noted, posterior pharynx clear NECK: Supple, no adenopathy LUNGS: Normal breath sounds. No adventitious sounds or accessory muscle use. SpO2<98> CARDIOVASCULAR: Regular rate and rhythm without noted murmurs ABDOMEN: Soft, non-tender, non-distended with bowel sounds. PELVIS: Stable, nontender MUSCULOSKELETAL: No tenderness, deformities, or effusions noted on gross inspection. EXTREMITIES: No cyanosis, clubbing or edema. LEFT SHOULDER: Full range of motion, no deformity, no erythema/induration, neurovascular is intact distal. There is a small ecchymosis to the left gluteus. SKIN: Inspection of the skin reveals no rashes NEUROLOGIC: Alert and oriented x 4. Strength and sensation to light touch were grossly intact x 4. Course Course Course Narrative: RME- 48 year old female presents for evaluation of left shoulder and lower back pain after a fall. Plan for x-rays Medical Decision Making Medical Decision Making MDM Narrative: This is a 48-year-old female with history and clinical presentation most consistent with musculoskeletal pain after a minor mechanical fall from a delivery truck. No acute deformities, patient received combination analgesics and review of imaging studies is negative for fracture or dislocation. Patient has no neurologic deficits and is otherwise discharged back home. Differential Diagnosis Differential Diagnoses: The differential diagnosis associated with the presentation includes Please see the discussion above Admission/Observation Please see the discussion above Radiology Impression Discussion of test interpretation with radiology: I have reviewed the rad iologist's reading. Radiologist Impression: Please see the discussion above Discharge Plan Discharge Clinical Impression: Musculoskeletal pain Patient Disposition: Home, Self-Care Instructions: Musculoskeletal Pain (ED) Additional Instructions: 1. Tylenol 1000 mg, por v?a oral, cada 6 horas seg?n sea necesario para controlar el dolor. No exceda los 4000 mg en 24 horas. 2. Ibuprofeno 400 mg, por v?a oral con leche o comida, cada 6 horas seg?n sea necesario para controlar el dolor. Puede haven esto con Tylenol para mejorar el alivio de los s?ntomas. 3. Parche de lidoca?na, apl?quelo en el ?evaristo de m?xima sensibilidad bradly se indica en el paquete exterior. 4. Keren un seguimiento con la conexi?n laboral de abdul empleador. Regrese a la clarisa de emergencias si los s?ntomas empeoran. 1. Tylenol 1000 mg, orally, every 6 hours as needed for pain control. Do not exceed 4000 mg within 24 hours. 2. Ibuprofen 400 mg, orally with milk or food, every 6 hours as needed for pain control. You may take this with Tylenol for improved symptom relief. 3. Lidocaine patch, apply to area of maximal tenderness as directed on the outside packaging. 4. Please follow-up with your employer's work connection. Return to the ER for any worsening symptoms. Prescriptions: Discontinued ibuprofen 600 mg tablet 1 tab PO TID PRN (Reason: Pain) diclofenac potassium 50 mg tablet 50 mg PO TID naproxen 500 mg tablet 500 mg PO BID No Action acetaminophen [Tylenol Ex Str Arthritis Pain] 500 mg Tablet 1,000 mg PO Q6H PRN (Reason: Pain) Excedrin Migraine 250-250-65 mg Tablet 1 tab PO Q4-6H PRN (Reason: Pain) dicyclomine 20 mg tablet 20 mg PO QID PRN (Reason: abdominal pain) Qty: 20 0RF sumatriptan succinate 100 mg tablet 0 mg PO fluticasone propionate 50 mcg/actuation spray,suspension 0 mcg intranasal topiramate 25 mg tablet 25 mg PO BEDTIME pseudoephedrine HCl [Sudafed 12 Hour] 120 mg tablet extended release 120 mg PO Q12H cyclobenzaprine 10 mg tablet 10 mg PO TID dicyclomine 10 mg capsule 10 mg PO QID gotlysfnwm-ignzezsofohgp-fjms 50-325-40 mg tablet 1 tab PO Q6H PRN (Reason: headache) prednisone 5 mg tablet See Rx Instructions PO .COMPLEX Qty: 70 0RF Rx Instructions: Take 4 tabs by mouth once daily with breakfast for 1 week then 3 tabs daily for 1 week then 2 tabs daily for 1 week then 1 tab daily for 1 week then stop Referrals: Claudia Anrdews MD [Primary Care Provider] - Stand Alone Forms: Work/School Release Print Language: Tanzanian
[2023-06-19] MEDS: Ketorolac Tromethamine 15 MG/ML VIAL IM (22:10)
[2023-06-19] MEDS: Acetaminophen 325 MG TABLET 975 MG PO (22:10)
== END 2023-06-19 22:22 | disposition home or self-care (01) ==
PROVIDERS: Emergency Provider Student in an Organized Health Care Education/Training Program; PCP Internal Medicine
DX: M79.10 Myalgia, unspecified site (principal); M54.50 Low back pain, unspecified; M25.512 Pain in left shoulder; Z79.899 Other long term (current) drug therapy
CPT/HCPCS: 72100; 73030; 96372; 99283; 99284; J1885

== ENCOUNTER 2023-06-21 10:30 | Outpatient (RCR) | payer MEDICAID, SELFPAY ==
--- NOTE | 2023-05-24 11:18 | MHC.OT.EP ---
[address] [phone] Occupational Therapy Plan of Care Patient Name: Noris Koenig Date of Evaluation: 05/24/23 Diagnosis: Left thumb avulsion fracture Pain Location: Achy left thumb Pain Score: 8 Pain Scale Used: Numeric (0 - 10) Aggravating Factors: Left hand gripping Alleviating Factors: Avoiding use of left hand thumb. Assessment: Pt is a 47 yo female 4 wks , 3 days s/p left thumb MP jt avulsion fx due to thumb pull on a strap at work Today she presents with continued pain and limited IP jt flexion due to pain with trigger thumb noted. Pt is avoiding use of her left thumb due to pain She was on light duty for 2 weeks but is now out of work. 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 Thank you once again for your referral.
--- NOTE | 2023-07-10 11:17 | MHC.OT.DC ---
[address] [phone] F: [phone] Occupational Therapy Discharge Note Patient Name: Noris Koenig Provider: Maria Luz Mclean Diagnosis: Left thumb avulsion fracture Date of Surgery: Date of Evaluation: 05/24/23 Date of Discharge: Treatments to Date: 5 Cancellations to Date: 2 No Shows to Date: 2 Discharge Status: Recommend MD Follow-up Visit Non-compliance Discharge Summary: Good passive IP jt flex at 55 deg, active flex to 10 deg. good carry over w/ oval 8 wear, MEM and PROM exercises Pain 2/10 dorsal left thumb MCPj Electronically Signed By: Merary Harris OT CHT CLT Reviewed/agree with student documentation: Therapist: Please Sign and return to therapist, thank you for your referral.
== END 2023-07-10 11:18 | disposition home or self-care (01) ==
LOC: HO.OT 10:30
PROVIDERS: PCP Internal Medicine; Visit Provider Physician Assistant
DX: S62.502D Fracture of unspecified phalanx of left thumb, subsequent encounter for fracture with routine healing (principal)
CPT/HCPCS: 97035; 97110; 97140; 97165; 97530

== ENCOUNTER 2023-07-03 14:30 | Outpatient (REF) | payer MEDICAID, SELFPAY ==
--- NOTE | ~2023-07-03 | XR_ITS ---
EXAMINATION: XR HAND, LEFT CLINICAL INFORMATION: Pain. COMPARISON: Radiographs dated 05/16/2023. TECHNIQUE: PA, lateral, and oblique views of the left hand. FINDINGS: Bony alignment and mineralization are normal. No acute fracture or dislocation is seen. A well-corticated, oval accessory ossification center versus chronic avulsion fragment is seen at the medial aspect of the first metacarpal base. There is mild osteoarthritic change of the second distal interphalangeal joint, and minimal osteoarthritic change is seen of the third and fourth distal interphalangeal joints. There is no bony erosion. No focal soft tissue swelling, gas or foreign body is seen. XR/XR hand LT min 3V IMPRESSION: There is mild to very mild osteoarthritic change of the second through fourth distal interphalangeal joints. No fracture or dislocation is presently seen. No abnormal bone erosion.
== END 2023-07-03 14:31 | disposition home or self-care (01) ==
LOC: HO.HOSX 14:30
PROVIDERS: Visit Provider Orthopaedic Surgery
DX: S62.502A Fracture of unspecified phalanx of left thumb, initial encounter for closed fracture (principal)
CPT/HCPCS: 73130; 99212

== ENCOUNTER 2023-07-03 15:11 | Outpatient (AMB) | payer MEDICAID, SELFPAY ==
--- NOTE | 2023-07-03 15:40 | MHC.OFFVIS ---
Intake Vital Signs 07/03/23 15:44 Height 5 ft 3 in Weight 220 lb BMI 39.0 Intake Visit Reasons: OV - left thumb fx, DOI 04/28/23. Intake Note: Noris 48 yr old right hand dominant female presents today for further evaluation of possible trigger finger left thumb. States her thumb locks at her IP joint. States she has a lot of pain when her thumb locks and has tenderness at base of thumb. Hx of left thumb fracture DOI 04/28/23, treated with Marybeth Mclean. Allergies No Known Allergies Allergy (Verified 07/03/23 15:45) HPI OV - left thumb fx, DOI 04/28/23. HPI Details Noris is a 48 year old right hand dominant Yi speaking woman who presents to discuss her left trigger thumb. This is a new problem which began several weeks ago. She appears to have had a fracture of the distal ulnar articular surface of the trapezium, DOI: 04/28/23. This was a work related injury. Which was being followed by ELINA Braga. She worked on improving her range of motion with OT and at-home exercises. The base of her thumb is feeling much better. 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 She is right handed. She follows with Rheumatology for polyarthralgia, and she is being assessed for rheumatoid arthritis [facility] Medical History BCP ( control pills) initiation Cervical cancer screening Gall bladder disease Migraines Potential exposure to STD Well woman exam with routine gynecological exam Surgical History History of bilateral tubal ligation History of reversal of tubal ligation Social History (Updated 07/03/23 @ 15:45 by Tiki Lester [facility] Alcohol intake: never Patient Tobacco Use Status: Never used Tobacco Current occupational status: employed Current occupation: armored security / rt hand Gender identity: Female Female Reproductive History Menstrual Age of Menarche: 10 Review of Systems Const All systems reviewed & are unremarkable except as noted in HPI and below Physical Exam Vital Signs: BMI result Body Mass Index 39.0 Const General: cooperative, healthy appearing and no acute distress Orientation/consciousness: patient oriented x3 HEENT Head: Yes normocephalic and Yes atraumatic Eyes EOM: EOMs intact bilaterally Resp Effort & Inspection: normal respiratory effort and able to speak in complete sentences Cardio Jugular venous distension: no JVD Skin General skin exam: turgor normal Rashes: no rashes Neuro General: patient oriented x3 Extrem Other: Evaluation of Left Upper Extremity: The patient is alert, oriented, and in no acute distress Neuro: Median, Ulnar, Radial nerves motor and sensory intact and sensation is normal to the tips of all digits Vascular: Cap refill brisk ROM: She can make a fist and extend all her digits Visible and palpable locking and catching of the left thumb She is nontender about the basal joint of the thumb and has some move active motion and circumduction of the thumb without pain. Radiographs: 3 views of the left hand, with attention to the thumb, were taken and viewed by me today in clinic. They show a minimally displaced fracture of the distal ulnar articular surface of the trapezium within the 1st CMC joint. Psych Appearance: grossly normal Affect: normal affect Attitude: cooperative Assessment & Plan Assessment & Plan (1) Avulsion fracture of left thumb: Code(s): S62.502A - Fracture of unspecified phalanx of left thumb, initial encounter for closed fracture (2) Trigger finger of left thumb: Code(s): M65.312 - Trigger thumb, left thumb (3) Polyarthralgia: Code(s): M25.50 - Pain in unspecified joint Plan Assessment & Plan: 1. Left trigger thumb I educated her about this condition I discussed operative and non-operative treatment options The patient would like to proceed with surgery The risks and benefits of operative treatment were discussed with the patient and the patient wishes to proceed with surgery. These risks include, but are not limited to risk of damage to blood vessels, nerves, tendons, infection, recurrence, incomplete relief of preoperative symptoms, persistent pain, possible need for further surgery and the risks associated with regional blocks and anesthesia. The plan is to take the patient to the operating room sometime in the next few weeks for the following procedures: 1. Left trigger thumb release, under local All of the preoperative paperwork including the consent was filled out today. All the patient's questions were answered. The patient understands that they will be contacted by our radiology scheduler soon to schedule this procedure She denies Diabetes, blood thinners, asthma, heart, lung, kidney issues It is possible that she developed this trigger thumb as result of the trapezium fracture and subsequent recovery. 2. Left thumb trapezium avulsion fracture From a workplace injury, DOI: 04/28/23 No longer symptomatic, and appears to have gone on to heal well. Scribed for Kay Valeljo MD by Andrew Ferguson, medical pathologist, on 07/03/23 at 3:50 PM, EST. Orders: Orders XR hand LT min 3V Today M79.642 - Pain in left hand Coding Level of Care Code Est Pt Level 4 (18983) Diagnoses Avulsion fracture of left thumb S62.502A Trigger finger of left thumb M65.312 Polyarthralgia M25.50
[2023-07-03 15:44] VITALS: BMI 39.0
== END 2023-07-03 16:08 | disposition home or self-care (01) ==
PROVIDERS: PCP Internal Medicine; Visit Provider Orthopaedic Surgery
DX: S62.502A Fracture of unspecified phalanx of left thumb, initial encounter for closed fracture (principal); M65.312 Trigger thumb, left thumb; M25.50 Pain in unspecified joint
CPT/HCPCS: 99214

== ENCOUNTER 2023-07-12 14:22 | Outpatient (AMB) | payer MEDICAID, SELFPAY ==
[2023-07-12 14:28] VITALS: BP 126/70; PULSE 94; TEMP 36.7; O2SAT 99; BMI 41.4
--- NOTE | 2023-07-12 14:28 | MHC.OFFVIS ---
Intake Vital Signs 07/12/23 14:28 Height 5 ft 3 in Weight 233 lb 11.04 oz BMI 41.4 BP 126/70 Blood Pressure Location Rt brachial Position Sitting Pulse 94 Pulse Source Pulse Oximeter Temp 98.1 F Temp Source Skin Pulse Oximetry (%) 99 Intake Visit Reasons: RA Intake Note: Pt seen today for RA follow up. Denies new or increased pain. Reports she is supposed to have surgery on left thumb, waiting to hear from specialist. Exercising more to manage FM. Voucher Examiner Required: Yes Voucher Examiner Name: Travis [id number] Accompanied by: Self / Same As Patient Allergies No Known Allergies Allergy (Verified 07/12/23 14:29) Medication List - Last Reconciled 07/12/23 by Aubree Mitchell MD acetaminophen 1,000 mg PO Q6H PRN vpbypat-xiklipjxhxxnt-aifavshq 250-250-65 mg (Excedrin Migraine) 1 tab PO Q4-6H PRN lllewmqvaf-xwxbbeyavasgp-rmup 50-325-40 mg 1 tab PO Q6H PRN cyclobenzaprine 10 mg PO TID dicyclomine 20 mg PO QID PRN fluticasone propionate 50 mcg/actuation 0 mcg intranasal naproxen 500 mg PO BID pseudoephedrine HCl ER (Sudafed 12 Hour) 120 mg PO Q12H sumatriptan succinate 0 mg PO topiramate 25 mg PO BEDTIME HPI HPI Comments History of Present Illness Details Patient returns for follow-up. She completed the prednisone taper. Stated that prednisone did not help her symptoms whatsoever. She continues to have the same pain. She was evaluated by Hand surgery and she is planned for left thumb trigger finger release. Initial history: This is a 47-year-old female presents for evaluation of diffuse pain. Patient states that she gets intermittent pain and stiffness of her hands, ankles, feet, back. Morning stiffness lasting from 15 minutes to 1 hour. She was told that she might have rheumatoid arthritis in the past but it was not conclusive. She was also told that she might have fibromyalgia, she was started on a medication for fibromyalgia but it caused side effect and patient stopped it. A few days ago patient sustained an avulsion fracture of her left thumb, she went to the emergency room and she now has a thumb spica splint, she has an appointment with Orthopedics today. She is unaware of any family history of autoimmune rheumatic disease. Denies any history of recurrent miscarriages. 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 Gender identity: Female Female Reproductive History Menstrual Age of Menarche: 10 Review of Systems Musc Reports arthralgias and Reports stiffness Physical Exam Vital Signs: Last Vital Signs Temp 98.1 F 07/12/23 14:28 Pulse 94 07/12/23 14:28 BP 126/70 07/12/23 14:28 Pulse Ox 99 07/12/23 14:28 BMI result Body Mass Index 41.4 Const General: cooperative, healthy appearing and comfortable Nutritional Appearance: obese morbidly obese Orientation/consciousness: patient oriented x3 Limitations: no limitations HEENT Head: Yes normocephalic and Yes atraumatic Mouth: moist mucous membranes Resp Effort & Inspection: normal respiratory effort and able to speak in complete sentences Neuro General: patient oriented x3 Extrem Other: Multiple fibromyalgia tender points Osteoarthritic changes of both hands with early Sandip's and Heberden's nodes Squaring of 1st CMC joint bilaterally Assessment & Plan Assessment & Plan (1) Polyarthralgia: Code(s): M25.50 - Pain in unspecified joint Plan: This is a 48-year-old female who presents for evaluation of diffuse pain. Upon evaluation I do not see any evidence of autoimmune rheumatic disease. Patient has negative serologies except for positive ZOFIA 1-80 which is nonspecific. Symptoms fail to respond to prednisone taper. She has some features bilateral hand osteoarthritis. I educated patient about this condition. Follow-up as needed Plan I spent 16 minutes reviewing patient's chart, evaluating patient, counseling patient and documenting in the chart Coding Level of Care Code Est Pt Level 3 (07684) Diagnoses Polyarthralgia M25.50
== END 2023-07-12 15:01 | disposition home or self-care (01) ==
PROVIDERS: PCP Internal Medicine; Visit Provider Student in an Organized Health Care Education/Training Program
DX: M25.50 Pain in unspecified joint (principal)
CPT/HCPCS: 99213

== ENCOUNTER → 2023-07-12 14:22 | Outpatient (BNVA) | payer MEDICAID, SELFPAY | PROVIDERS: PCP Internal Medicine; Visit Provider Student in an Organized Health Care Education/Training Program | DX: M25.50 Pain in unspecified joint (principal) | CPT/HCPCS: 99212 ==

== ENCOUNTER 2023-08-26 11:18 | Outpatient (REF) | payer MEDICAID, SELFPAY ==
[2023-08-26 14:45] LABS: Hematocrit 42.3 % (37.0-47.0); Hemoglobin 13.3 g/dl (12.0-16.0); Mean Corpuscular HGB Conc 31.4 g/dl (31.0-35.0); Mean Corpuscular Hemoglobin 26.3 pg (27.0-33.0); Mean Corpuscular Volume 83.8 fL (80.0-98.0); Mean Platelet Volume 10.4 fL (9.4-12.3); Platelet Count 368 X10*3/uL (160-400); Red Blood Count 5.05 X10*6/uL (4.20-5.50); Red Cell Distribution Width 12.8 % (11.0-16.0); White Blood Count 7.6 X10*3/uL (4.8-10.8)
[2023-08-26 15:08] LABS: Alanine Aminotransferase 14 U/L (0-31); Albumin Level 4.1 g/dL (3.5-5.0); Alkaline Phosphatase 101 U/L (39-117); Anion Gap 9 (12-20); Aspartate Amino Transferase 19 U/L (5-31); Bilirubin Total 0.5 mg/dL (0.0-1.0); Blood Urea Nitrogen 15 mg/dL (9-16); Calcium 9.4 mg/dL (8.4-10.2); Carbon Dioxide 29 mmol/L (22-29); Chloride 108 mmol/L (96-108); Estimated Glomerular Filt Rate > 60; Glucose Random 78 mg/dL (60-115); Potassium 4.1 mmol/L (3.3-5.1); Sodium 142 mmol/L (135-145); Total Protein 7.5 g/dL (6.5-8.0)
[2023-08-27 04:04] LABS: HBc Num1 0.11 S/CO (0.00-0.79); HIV AB/AG Nonreactive (Nonreactive); HIV Num 1 0.06 S/CO (0.00-0.99); Hepatitis B Core Antibody Nonreactive (Nonreactive); Hepatitis B Surface Antigen Negative (Negative); ~Hepatitis B Surface Antibody NONREACTIVE (Nonreactive)
== END 2023-08-26 11:19 | disposition home or self-care (01) ==
LOC: HO.CHCLDS 11:18
PROVIDERS: Visit Provider Nurse Practitioner
DX: Z00.00 Encounter for general adult medical examination without abnormal findings (principal); Z11.4 Encounter for screening for human immunodeficiency virus [HIV]
CPT/HCPCS: 36415; 80053; 85027; 86704; 86706; 87340; 87389

== ENCOUNTER 2023-09-04 15:39 | Emergency (ER) | payer MEDICAID, SELFPAY ==
[2023-09-04 16:53] VITALS: BP 143/87; PULSE 84; RESP 18; TEMP 37.1; O2SAT 100; BMI 44.3
--- NOTE | 2023-09-04 16:57 | ED_ITS ---
HPI - General Adult General Chief complaint: Abdominal Pain Stated complaint: abd pain n/v Time Seen by Provider: 09/05/23 01:04 Source: patient and family Mode of arrival: ambulatory History of Present Illness HPI narrative: 48-year-old female who presents with complaints of epigastric abdominal pain the past 3 days but states that this has been ongoing for almost a month now and she has rib tried Prilosec and Pepto-Bismol with minimal relief and reports some associated nausea but denies any constipation diarrhea and has a history of GERD but has had her gallbladder removed 25 years ago and denies any associated fever, chills, shortness of breath or chest pain Related Data Home Medications Medication Instructions Recorded Confirmed acetaminophen 500 mg tablet 1,000 mg PO Q6H PRN Pain 01/22/22 05/02/23 hlxkqaw-gmnhpvfugogth-cmgrgfkj 250 1 tab PO Q4-6H PRN Pain 01/22/22 05/02/23 mg-250 mg-65 mg tablet (Excedrin Migraine) fluticasone propionate 50 0 mcg intranasal 05/02/23 05/02/23 mcg/actuation nasal spray,suspension pseudoephedrine HCl 120 mg 120 mg PO Q12H 05/02/23 05/02/23 tablet,extended release (Sudafed 12 Hour) sumatriptan succinate 100 mg tablet 0 mg PO 05/02/23 05/02/23 topiramate 25 mg tablet 25 mg PO BEDTIME 05/02/23 05/02/23 ceowdkgjgd-zwgfvqiweqhqb-dphhijrp 1 tab PO Q6H PRN headache 06/06/23 50 mg-325 mg-40 mg tablet cyclobenzaprine 10 mg tablet 10 mg PO TID 06/06/23 dicyclomine 20 mg tablet 20 mg PO QID PRN abdominal pain 07/12/23 naproxen 500 mg tablet 500 mg PO BID 07/12/23 Previous Rx's Medication Instructions Recorded sucralfate 100 mg/mL oral 10 ml PO BID #420 mL 09/05/23 suspension (Carafate) Allergies Allergy/AdvReac Type Severity Reaction Status Date / Time No Known Allergies Allergy Verified 09/04/23 16:53 Review of Systems 2 Review of Systems: Pertinent positives and negatives as stated in HPI [facility] Past Medical History Source: nursing notes reviewed Medical History Potential exposure to STD Cervical cancer screening BCP ( control pills) initiation Well woman exam with routine gynecological exam Gall bladder disease Migraines Surgical History History of reversal of tubal ligation History of bilateral tubal ligation Social History Social History Alcohol intake: never Patient Tobacco Use Status: Never used Tobacco Smoked in Last 30 Days: No Use of substances other than those prescribed or required for medical reasons: No Advance Directives: No Advance Directives Information Provided: No Current occupational status: employed Current occupation: armored security / rt hand Gender identity: Female Physical Exam ED Vital Signs: Vital Signs - 24 hr 09/04/23 16:53 09/05/23 01:42 09/05/23 04:02 Temperature 98.7 F 98.4 F 98.0 F Pulse Rate 84 83 73 Respiratory Rate 18 20 16 Blood Pressure 143/87 H 101/52 L 122/79 Pulse Oximetry 100 99 99 Oxygen Delivery Method Room Air Room Air Room Air BMI result Body Mass Index 44.3 VITAL SIGNS: Reviewed. GENERAL: Well developed, well nourished, in no acute distress. HEAD: Normocephalic/atraumatic EYES: PERRLA, EOMI EARS: Ext canals without abnormality NOSE: Nares patent bilateral OROPHARYNX: no oral lesions noted, posterior pharynx clear NECK: Supple, no adenopathy LUNGS: Normal breath sounds. No adventitious sounds or accessory muscle use. SpO2<99> CARDIOVASCULAR: Regular rate and rhythm without noted murmurs ABDOMEN: Soft, non-tender, non-distended with bowel sounds. MUSCULOSKELETAL: No tenderness, deformities, or effusions noted on gross inspection. EXTREMITIES: No cyanosis, clubbing or edema. SKIN: Inspection of the skin reveals no rashes NEUROLOGIC: Alert and oriented x 4. Strength and sensation to light touch were grossly intact x 4. Course Course Course Narrative: This is an RME: Additional HPI, ROS, PE not included below will be deferred to primary provider. This is a 48-year-old female presenting to the emergency department complaints of epigastric abdominal pain, nausea, vomiting. No constipation or diarrhea. History of GERD, she had a cholecystectomy 10 years ago. Plan: Labs, EKG, UA Medications Administered Discontinued Medications Generic Name Dose Route Start Last Admin Trade Name Freq PRN Reason Stop Dose Admin Al Hydroxide/Mg Hydroxide 30 ml 09/05/23 03:22 09/05/23 04:06 Magnesium Hydrox/Alum Hydrox 30 Ml Oral.Susp PO 09/05/23 03:23 30 ml ONCE ONE Administration Lidocaine HCl 10 ml 09/05/23 03:22 09/05/23 04:06 Lidocaine Hcl Viscous 2 % 15 Ml Solution MUCOUS MEM 09/05/23 03:23 10 ml ONCE ONE Administration Sucralfate 1 gm 09/05/23 03:22 09/05/23 04:06 Sucralfate Oral Suspension 1 Gm/10 Ml Oral.Susp PO 09/05/23 03:23 1 gm ONCE ONE Administration Medical Decision Making Medical Decision Making [facility] Narrative: 48-year-old female with history and clinical presentation, DDX: Gastritis, gastric ulcer, or pancreatitis, status post cholecystectomy and no clinical suspicion for retained stone, no suspicion for pneumonia. I reviewed all investigations and hematologic indices are grossly within normal limits without leukocytosis or left shift, no anemia or thrombocytopenia. Chemistry indices are grossly within normal limits without evidence of LEATHA or electrolytes/liver enzyme derangements. High sensitivity troponin his undetectable without acute changes on EKG. Urinalysis demonstrates a dirty sample and no clinical suspicion for UTI. Patient given a combination of GI cocktail and Carafate solution. My interpretation is that patient may have either H pylori with a component of gastritis and the possibility of an ulcer. Patient did endorse that she has been given a referral for upper and lower endoscopy which is pending scheduling. Differential Diagnosis Differential Diagnoses: The differential diagnosis associated with the presentation includes Please see the discussion above Admission/Observation Consideration of admission/observation: Escalation of care including admission/observation considered Please see the discussion above Lab Data [facility] Lab Attestation statement: I reviewed the patient's lab results. Please see the discussion above 09/04/23 17:59 09/04/23 17:59 Labs: Lab Results 09/04/23 09/05/23 Range/Units 17:59 01:50 WBC 7.9 (4.8-10.8) X10*3/uL RBC 4.90 (4.20-5.50) X10*6/uL Hgb 13.0 (12.0-16.0) g/dl Hct 40.9 (37.0-47.0) % MCV 83.5 (80.0-98.0) fL MCH 26.5 L (27.0-33.0) pg MCHC 31.8 (31.0-35.0) g/dl RDW 12.8 (11.0-16.0) % Plt Count 311 (160-400) X10*3/uL MPV 10.4 (9.4-12.3) fL Immature Gran % (Auto) 0.3 (0.0-0.4) % Neut % (Auto) 60.4 (45-73) % Lymph % (Auto) 29.7 (20-40) % [place] % (Auto) 7.1 (2-11) % Eos % (Auto) 2.0 (0-4) % Baso % (Auto) 0.5 (0-2) % Lymph # (Auto) 2.3 (1.2-4.9) X10*3/uL [place] # (Auto) 0.6 (0.1-1.2) X10*3/uL Eos # (Auto) 0.2 (0.0-0.4) X10*3/uL Baso # (Auto) 0.0 (0.0-0.2) X10*3/uL Abs Immat Gran (auto) 0.02 (0.00-0.03) X10*3/uL Absolute Neuts (auto) 4.8 (2.0-8.3) x10*3/uL Absolute Nucleated RBC 0.000 (0.0-0.012) X10*3/uL Nucleated RBC % (auto) 0.0 (0.0-0.2) /100WBC Smear Tech's Comments VERIFIED Sodium 143 (135-145) mmol/L Potassium 4.1 (3.3-5.1) mmol/L Chloride 108 (96-108) mmol/L Carbon Dioxide 28 (22-29) mmol/L Anion Gap 11 L (12-20) BUN 9 (9-16) mg/dL Creatinine 0.81 (0.5-1.4) mg/dL Estim Creat Clear Calc 100.7 Estimated GFR > 60 Random Glucose 101 (60-115) mg/dL Calcium 8.9 (8.4-10.2) mg/dL Total Bilirubin 0.4 (0.0-1.0) mg/dL Direct Bilirubin 0.1 (0.0-0.5) mg/dL AST 17 (5-31) U/L ALT 14 (0-31) U/L Alkaline Phosphatase 95 (39-117) U/L Troponin I High Sens < 2.7 D (<3.5-17.0) ng/L Total Protein 7.4 (6.5-8.0) g/dL Albumin 3.9 (3.5-5.0) g/dL Urine Color Yellow Urine Appearance Clear Urine pH 6.5 (5.0-9.0) Ur Specific [place] 1.020 (1.005-1.025) Urine Protein Negative (Neg-Trace) mg/dL Urine Glucose (UA) Negative (Negative) mg/dL Urine Ketones Negative (Negative) mg/dL Urine Blood Trace H (Negative) Urine Nitrite Negative (Negative) Ur Leukocyte Esterase Trace H (Negative) Urine RBC 3-5 H (0-2) /HPF Urine WBC 0-5 (0-5) /HPF Ur Squamous Epith Cells 3-5 (0-2) /HPF Urine Bacteria 1+ (None Seen) Hyaline Casts 0-2 (0-2) /LPF Independent Interpretation I performed an independent interpretation of an: EKG Interpretation: Normal sinus rhythm, HR-75, no STEMI, NV/QRS/QTC is within normal limits. External Record Review External record reviewed: Outpatient record and Prior outpatient labs Chronic Conditions Patient?s care impacted by: Other GERD Discharge Plan Discharge Clinical Impression: Epigastric discomfort, GERD (gastroesophageal reflux disease), Gastritis Patient Disposition: Home, Self-Care Instructions: Gastritis (ED), Helicobacter Pylori (ED), Diet for Stomach Ulcers and Gastritis (ED), Gastroesophageal Reflux Disease (ED), Epigastric Pain (ED) Additional Instructions: 1. Reanude todos los medicamentos caseros seg?n lo recetado; sudarshan las pr?ximas 3 a 4 semanas, trate de evitar todo ibuprofeno/Motrin/Aleve/aspirina/Excedrin, ya que pueden contribuir a abdul malestar epig?strico. 2. Le he recetado medicamentos para ayudar a aliviar algunas de linda molestias. 3. Hable con abdul m?dico de atenci?n primaria sobre la posible prueba de H pylori. Regrese a la clarisa de emergencias si los s?ntomas empeoran. 1. Resume all home medications as prescribed, for the next 3-4 weeks try to avoid all ibuprofen/Motrin/Aleve/aspirin/Excedrin as these may contribute to your epigastric discomfort. 2. I have prescribed you medication to help alleviate some of your discomfort. 3. Please discuss with your primary care doctor possible H pylori testing. Return to the ER for any worsening symptoms. Prescriptions: New sucralfate [Carafate] 100 mg/mL suspension 10 ml PO BID Qty: 420 0RF No Action acetaminophen [Tylenol Ex Str Arthritis Pain] 500 mg Tablet 1,000 mg PO Q6H PRN (Reason: Pain) Excedrin Migraine 250-250-65 mg Tablet 1 tab PO Q4-6H PRN (Reason: Pain) sumatriptan succinate 100 mg tablet 0 mg PO fluticasone propionate 50 mcg/actuation spray,suspension 0 mcg intranasal topiramate 25 mg tablet 25 mg PO BEDTIME pseudoephedrine HCl [Sudafed 12 Hour] 120 mg tablet extended release 120 mg PO Q12H cyclobenzaprine 10 mg tablet 10 mg PO TID qeoyewmfvz-dylbltnpmlazf-mbdl 50-325-40 mg tablet 1 tab PO Q6H PRN (Reason: headache) dicyclomine 20 mg tablet 20 mg PO QID PRN (Reason: abdominal pain) naproxen 500 mg tablet 500 mg PO BID Referrals: Tara Shaikh MD [Primary Care Provider] - Stand Alone Forms: Work/School Release Interventions: ED Discharge Assessment Last Done: 09/05/23 04:10 Discharge Date/Time: 09/05/23 04:11 Print Language: Bahamian
--- NOTE | 2023-09-04 16:58 | ECG_ITS ---
Test Reason : ABDOMINAL PAIN Blood Pressure : / mmHG Vent. Rate : 075 BPM Atrial Rate : 075 BPM P-R Int : 124 ms QRS Dur : 086 ms QT Int : 388 ms P-R-T Axes : 051 029 020 degrees QTc Int : 433 ms Normal sinus rhythm with sinus arrhythmia Normal ECG When compared with ECG of 30-DEC-2022 14:50, No significant change was found Referred By: Reina Monge Electronically Signed By:STEFF MORA MD
[2023-09-04 18:13] LABS: Basophils Percent Auto 0.5 % (0-2); Imm Gran Abs Auto 0.02 X10*3/uL (0.00-0.03); Imm Gran Pct Auto 0.3 % (0.0-0.4); MANUAL DIFF FLAG SCAN; Mean Corpuscular Hemoglobin 26.5 pg (27.0-33.0); PLT CLUMP 1; SCAN SMEAR FLAG 1
[2023-09-04 18:15] LABS: Eosinophils Absolute Auto 0.2 X10*3/uL (0.0-0.4); Hematocrit 40.9 % (37.0-47.0); Lymphocytes Absolute Auto 2.3 X10*3/uL (1.2-4.9); Lymphocytes Percent Auto 29.7 % (20-40); Mean Corpuscular HGB Conc 31.8 g/dl (31.0-35.0); Mean Corpuscular Volume 83.5 fL (80.0-98.0); Mean Platelet Volume 10.4 fL (9.4-12.3); Monocytes Absolute Auto 0.6 X10*3/uL (0.1-1.2); Monocytes Percent Auto 7.1 % (2-11); Neutrophils Absolute Auto 4.8 x10*3/uL (2.0-8.3); Neutrophils Percent Auto 60.4 % (45-73); Red Cell Distribution Width 12.8 % (11.0-16.0)
[2023-09-04 18:20] LABS: White Blood Count 7.9 X10*3/uL (4.8-10.8)
[2023-09-04 18:32] LABS: SLIDE REVIEW VERIFIED
[2023-09-04 18:33] LABS: Alanine Aminotransferase 14 U/L (0-31); Albumin Level 3.9 g/dL (3.5-5.0); Alkaline Phosphatase 95 U/L (39-117); Anion Gap 11 (12-20); Aspartate Amino Transferase 17 U/L (5-31); Bilirubin Direct 0.1 mg/dL (0.0-0.5); Bilirubin Total 0.4 mg/dL (0.0-1.0); Blood Urea Nitrogen 9 mg/dL (9-16); Calcium 8.9 mg/dL (8.4-10.2); Carbon Dioxide 28 mmol/L (22-29); Chloride 108 mmol/L (96-108); Creatinine Clr Calc Pharmacy 100.7; Estimated Glomerular Filt Rate > 60; Glucose Random 101 mg/dL (60-115); Potassium 4.1 mmol/L (3.3-5.1); Sodium 143 mmol/L (135-145); Total Protein 7.4 g/dL (6.5-8.0)
[2023-09-04 18:34] LABS: Platelet Count 311 X10*3/uL (160-400)
[2023-09-04 18:42] LABS: Troponin-I High Sensitivity < 2.7 ng/L (<3.5-17.0)
[2023-09-05 01:42] VITALS: BP 101/52; PULSE 83; RESP 20; TEMP 36.9; O2SAT 99
[2023-09-05 02:02] LABS: Appearance Urine Clear; Color Urine Yellow; Glucose Urine UA Negative (Negative); Leukocyte Esterase Urine Trace (Negative); Nitrite Urine Negative (Negative); PH 6.5 (5.0-9.0); UMIC TRIGGER UACC YES; Urine Blood Trace (Negative); Urine Ketones Negative (Negative); Urine Protein Negative (Neg-Trace)
[2023-09-05 02:05] LABS: Bacteria Urine 1+ (None Seen); Hyaline Casts Urine 0-2 /LPF (0-2); WBC Urine 0-5 /HPF (0-5)
--- NOTE | 2023-09-05 02:28 | PC.NURSE ---
Patient complaining of abdominal pain in the mid upper abdomen that has been getting worse. Patient has noted that in the past few days the pain has gotten even worse to the point that she is unable to keep down any food of fluids. States that even if she is able to keep it down it feels like she has something stuck in her upper abdomen. Saw her PCP about this on the and was prescribed prilosec and bentyl which has not helped her.
[2023-09-05 04:02] VITALS: BP 122/79; PULSE 73; RESP 16; TEMP 36.7; O2SAT 99
[2023-09-05] MEDS: Sucralfate Oral Suspension 1 GM/10 ML ORAL.SUSP PO (04:06)
[2023-09-05] MEDS: Magnesium Hydrox/Alum Hydrox 30 ML ORAL.SUSP PO (04:06)
[2023-09-05] MEDS: Lidocaine HCl Viscous 2 % 15 ML SOLUTION 10 ML MUCOUS MEM (04:06)
== END 2023-09-05 04:11 | disposition home or self-care (01) ==
PROVIDERS: Physician Assistant Medical; Emergency Provider Student in an Organized Health Care Education/Training Program; PCP Internal Medicine
DX: K21.9 Gastro-esophageal reflux disease without esophagitis (principal); K29.70 Gastritis, unspecified, without bleeding; I49.8 Other specified cardiac arrhythmias; R10.13 Epigastric pain; R11.2 Nausea with vomiting, unspecified; Z79.899 Other long term (current) drug therapy
CPT/HCPCS: 36415; 80048; 80076; 81001; 81003; 84484; 85025; 93005; 99284

== ENCOUNTER 2023-09-12 14:00 | Outpatient (REF) | payer MEDICAID, SELFPAY ==
[2023-09-12 15:14] LABS: Lipase 8 U/L (8-78)
[2023-09-12 15:31] LABS: TSH reflex Free T4 0.58 uIU/mL (0.32-4.0)
== END 2023-09-12 14:01 | disposition home or self-care (01) ==
LOC: HO.LAB 14:00
PROVIDERS: PCP Internal Medicine; Visit Provider Pediatrics
DX: K21.9 Gastro-esophageal reflux disease without esophagitis (principal); E66.01 Morbid (severe) obesity due to excess calories; R10.13 Epigastric pain
CPT/HCPCS: 36415; 83690; 84443

== ENCOUNTER 2023-09-25 12:01 | Outpatient (AMB) | payer MEDICAID, SELFPAY ==
--- NOTE | 2023-09-25 12:06 | MHC.OFFVIS ---
Intake Vital Signs 09/25/23 12:08 Height 5 ft 3 in Weight 226 lb BMI 40.0 BP 149/77 H Blood Pressure Location Lt brachial Position Sitting Pulse 90 Intake Visit Reasons: Gastroesophageal reflux disease (GERD) Intake Note: Patient new consult for GERD, Pre Colonoscopy/EGD screening. Patient cc: diarrhea, gassy, abdominal pain with bloating on and off, acid reflex with burning sensation. Rod Hanger Required: Yes Accompanied by: Self / Same As Patient Allergies No Known Allergies Allergy (Verified 09/25/23 12:06) Medication List - Last Reconciled 09/25/23 by Robyn Beach PA-C acetaminophen 1,000 mg PO Q6H PRN cyclobenzaprine 10 mg PO TID dicyclomine 20 mg PO QID PRN famotidine 20 mg PO BID fluticasone propionate 50 mcg/actuation 0 mcg intranasal naproxen 500 mg PO BID pantoprazole 20 mg PO DAILY pseudoephedrine HCl ER (Sudafed 12 Hour) 120 mg PO Q12H sucralfate 1 g (10 mL) PO QIDACHS 4 weeks sumatriptan succinate 0 mg PO HPI HPI Comments History of Present Illness Details A 48 y/o female referred with gerd-she was EGD a couple weeks ago in which she began carafate completed- very good response saw pcp pantoprazole 40 mg, as well as famotidine-for the past 10 days-has not noted much improvement in her sx She has had good response with Mylanta -she had taken Pepto-Bismol previously noted she had dark stools she has no blood noted in the stool she c/o gassy-in feels somewhat upper abdominal bloating She has no nausea, vomiting hematemesis, hematochezia fever or chills PFSH Medical History Potential exposure to STD Cervical cancer screening BCP ( control pills) initiation Well woman exam with routine gynecological exam Gall bladder disease Migraines Surgical History History of reversal of tubal ligation History of bilateral tubal ligation Social History Alcohol intake: never Patient Tobacco Use Status: Never used Tobacco Current occupational status: employed 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 Gender identity: Female Female Reproductive History Menstrual Age of Menarche: 10 Review of Systems Const All systems reviewed & are unremarkable except as noted in HPI and below Card Denies chest pain and Denies dyspnea Resp Denies dyspnea GI Denies abdominal pain, Reports bloating, Denies hematochezia and Reports heartburn Physical Exam Vital Signs: Last Vital Signs Pulse 90 09/25/23 12:08 BP 149/77 H 09/25/23 12:08 BMI result Body Mass Index 40.0 Const General: cooperative, comfortable and no acute distress Orientation/consciousness: patient oriented x3 Limitations: no limitations Eyes Conjunctivae: conjunctivae normal Resp Effort & Inspection: normal respiratory effort and able to speak in complete sentences Auscultation: clear to auscultation bilaterally, no rales, no rhonchi and no wheezes Cardio Rate: regular rate Rhythm: regular rhythm Heart sounds: S1 normal heart sound present and S2 normal heart sound present GI Palpation (GI): Soft to palpation and nontender Auscultation: normal bowel sounds Skin General skin exam: no rashes or lesions noted Neuro General: patient oriented x3 Extrem General: Yes full ROM Psych Appearance: grossly normal and well kempt Mental Status: mental status grossly normal Speech and movement: Normal speech and movement present and Clear speech present Affect: normal affect Attitude: cooperative Thought process: Normal thought process present Thought content: Normal thought content present Results Reviewed Results Reviewed: 02/22/2016- Dr. Vivas- EGD/ colonoscopy-no HP, no polyps- no Fam hx CRC Assessment & Plan Assessment & Plan (1) Chronic GERD: Code(s): K21.9 - Gastro-esophageal reflux disease without esophagitis Plan: Discontinue PPI for 2 weeks May take Carafate and Pepcid and the interim- H pylori stool antigen (must discontinue Pepcid 2 days prior to submitting stool sample) She will call and 2 days later for results Reflux precautions (2) Bloating: Comment: Bloating dyspepsia Code(s): R14.0 - Abdominal distension (gaseous) Plan: Test for H pylori Plan Discontinue PPI for 2 weeks May take Carafate and Pepcid and the interim- H pylori stool antigen (must discontinue Pepcid 2 days prior to submitting stool sample) She will call and 2 days later for results Reflux precautions Simethicone Low FODMAP diet Orders: Orders H pylori Ag Stool 2 Weeks A04.8 - Other specified bacterial intestinal infections Medications: New simethicone (Gas Relief (simethicone)) 125 mg PO TID-QID PRN 90 tabs 2RF abdominal distention sucralfate 1 g (10 mL) PO QIDACHS 4 weeks 420 mL 0RF reflux Patient Instructions: Discontinue PPI for 2 weeks May take Carafate and Pepcid and the interim- H pylori stool antigen (must discontinue Pepcid 2 days prior to submitting stool sample) if positive will treat She will call and 2 days later for results Reflux precautions Low FODMAP diet, reviewed literature given Simethicone Coding Level of Care Code New Pt Level 3 (83071) Diagnoses Chronic GERD K21.9 Bloating R14.0 Time Spent (min) 30 Comment windows vmware administrator device- 18 min/ then followed up with in person
[2023-09-25 12:08] VITALS: BP 149/77; PULSE 90; BMI 40.0
== END 2023-09-25 12:41 | disposition home or self-care (01) ==
PROVIDERS: PCP Internal Medicine; Visit Provider Physician Assistant
DX: K21.9 Gastro-esophageal reflux disease without esophagitis (principal)
CPT/HCPCS: 99203

== ENCOUNTER → 2023-09-25 12:01 | Outpatient (BNVA) | payer MEDICAID, SELFPAY | PROVIDERS: PCP Internal Medicine; Visit Provider Physician Assistant | DX: K21.9 Gastro-esophageal reflux disease without esophagitis (principal); R14.0 Abdominal distension (gaseous) | CPT/HCPCS: 99212 ==

== ENCOUNTER 2023-10-09 13:08 | Outpatient (REF) | payer MEDICAID, SELFPAY | END 2023-10-09 13:09 | disposition home or self-care (01) | LOC: HO.LNP 13:08 | PROVIDERS: Visit Provider Physician Assistant | DX: A04.8 Other specified bacterial intestinal infections (principal) | CPT/HCPCS: 87338 ==

== ENCOUNTER 2023-10-16 10:30 | Outpatient (AMB) | payer MEDICAID, SELFPAY ==
--- NOTE | 2023-10-16 10:36 | MHC.OFFVIS ---
Intake Vital Signs 10/16/23 10:38 Height 5 ft 3 in Weight 226 lb BMI 40.0 BP 124/65 Blood Pressure Location Lt brachial Position Sitting Pulse 79 Intake Visit Reasons: Follow up GERD Intake Note: Patient follow up for GERD. Patient cc: left abdominal pain with chronic cramps, gassy, soft stool, and some burning on her throat, and denies any GI issues. Microwave Remote Sensing Scientist Required: Yes Microwave Remote Sensing Scientist Name: [facility] [place] Interpeter Accompanied by: Self / Same As Patient Allergies No Known Allergies Allergy (Verified 10/16/23 10:35) Medication List - Last Reconciled 10/16/23 by Robyn Beach PA-C acetaminophen 1,000 mg PO Q6H PRN dicyclomine 20 mg PO QID PRN famotidine 20 mg PO BID fluticasone propionate 50 mcg/actuation 0 mcg intranasal naproxen 500 mg PO BID pantoprazole 20 mg PO DAILY pseudoephedrine HCl ER (Sudafed 12 Hour) 120 mg PO Q12H simethicone (Gas Relief (simethicone)) 125 mg PO TID-QID PRN sucralfate 1 g (10 mL) PO QIDACHS 4 weeks sumatriptan succinate 0 mg PO HPI HPI Comments History of Present Illness Details A 48 y/o female f/u with bloating and reflux- HP negative-she is becoming frustrated as her symptoms seem worsening she is unable to identify anything specific. Bowels are inconsistent abdominal bloating cramping mostly resolved after BM however does not feel completely evacuated Acid reflux with water brash, occasional nausea no vomiting Colonoscopy- 2016- Dr. 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 Gender identity: Female Female Reproductive History Menstrual Age of Menarche: 10 Physical Exam Vital Signs: Last Vital Signs Pulse 79 10/16/23 10:38 BP 124/65 10/16/23 10:38 BMI result Body Mass Index 40.0 Assessment & Plan Assessment & Plan (1) Bloating: Comment: Bloating dyspepsia Code(s): R14.0 - Abdominal distension (gaseous) Plan: Low fod map reviewed (2) Chronic GERD: Code(s): K21.9 - Gastro-esophageal reflux disease without esophagitis Plan: Reviewed reflux precautions EGD Plan EGD and colonoscopy-needs fisher swordfish MiraLax Gatorade prep Low FODMAP diet Reflux precautions review Continue PPI Orders: Orders EGD/[place] Combo - GI Use Only Today Medications: New bisacodyl (Dulcolax (bisacodyl)) Day before procedure, prep day Take 4 tablets by mouth upon awakening followed by large glass of water 20 mg (4 x 5 mg) PO ONCE 1 day 4 tabs 0RF colonoscopy prep Z12.11 - Encounter for screening for malignant neoplasm of colon polyethylene glycol 3350 (Miralax) Take as directed by mouth the day before your procedure. 238 grams PO ONCE 1 day PRN 238 grams 0RF laxative effect Patient Instructions: EGD and colonoscopy-need for escorted due to illness CC MiraLax Gatorade prep reviewed literature given Low FODMAP diet-reviewed, literature given Reflux precautions reviewed Continue PPI Encouraged to call questions or concerns Coding Level of Care Code Est Pt Level 3 (18542) Diagnoses Bloating R14.0 Chronic GERD K21.9 Time Spent (min) 30 Comment Microwave Remote Sensing Scientist
[2023-10-16 10:38] VITALS: BP 124/65; PULSE 79; BMI 40.0
== END 2023-10-16 11:47 | disposition home or self-care (01) ==
PROVIDERS: PCP Internal Medicine; Visit Provider Physician Assistant
DX: K21.9 Gastro-esophageal reflux disease without esophagitis (principal)
CPT/HCPCS: 99213

== ENCOUNTER → 2023-10-16 10:30 | Outpatient (BNVA) | payer MEDICAID, SELFPAY | PROVIDERS: PCP Internal Medicine; Visit Provider Physician Assistant | DX: K21.9 Gastro-esophageal reflux disease without esophagitis (principal); R14.0 Abdominal distension (gaseous) | CPT/HCPCS: 99212 ==

== ENCOUNTER 2023-12-27 12:41 | Day surgery (SDC) | payer MEDICAID, SELFPAY ==
--- NOTE | 2023-12-26 10:16 | P.CONAN_ITS ---
Documented by User: Violeta Williamson NP 12/26/23 10:17 HPI - Anesthesia Eval Consult details Narrative: 48yo F for Upper Endoscopy and Colonoscopy [facility] Active Problems Active Problems: All Active Problems (Updated 09/25/23 @ 13:52 by Robyn Beach PA-C) Bloating (Acute) Chronic GERD (Acute) Trigger finger of left thumb (Acute) Avulsion fracture of left thumb (Acute) Fracture of thumb, left, closed (Acute) Polyarthralgia (Acute) Gall bladder disease (Acute) Migraines (Acute) Urinary incontinence (Acute) Past Medical History Medical History Potential exposure to STD Cervical cancer screening BCP ( control pills) initiation Well woman exam with routine gynecological exam Gall bladder disease Migraines Surgical History Surgical History History of reversal of tubal ligation History of bilateral tubal ligation Social History Social History Alcohol intake: never Patient Tobacco Use Status: Former Tobacco user Have you been hit, kicked, punched, or otherwise hurt by someone within the past year? 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 Gender identity: Female Meds Allergies Allergy/AdvReac Type Severity Reaction Status Date / Time No Known Allergies Allergy Verified 10/16/23 10:35 Home Medications Medication Instructions Recorded Confirmed Last Taken Type acetaminophen 500 mg tablet 1,000 mg PO Q6H PRN Pain 01/22/22 10/16/23 01/22/22 15:00 History 1000 mg fluticasone propionate 50 0 mcg intranasal 05/02/23 10/16/23 Unknown History mcg/actuation nasal spray,suspension pseudoephedrine HCl 120 mg 120 mg PO Q12H 05/02/23 10/16/23 Unknown History tablet,extended release (Sudafed 12 Hour) sumatriptan succinate 100 mg tablet 0 mg PO 05/02/23 10/16/23 Unknown History dicyclomine 20 mg tablet 20 mg PO QID PRN abdominal pain 07/12/23 10/16/23 Unknown History naproxen 500 mg tablet 500 mg PO BID 07/12/23 10/16/23 Unknown History famotidine 20 mg tablet 20 mg PO BID 09/25/23 10/16/23 Unknown History pantoprazole 20 mg tablet,delayed 20 mg PO DAILY 09/25/23 10/16/23 Unknown History release Assessment and Plan Assessment Anesthesia Assessment: Chart Reviewed Documented by User: Naresh Vergara MD 12/27/23 14:30 [facility] Past Medical History Medical History Potential exposure to STD Cervical cancer screening BCP ( control pills) initiation Well woman exam with routine gynecological exam Gall bladder disease Migraines Family History Family history of problems with anesthesia: No Surgical History Surgical History History of reversal of tubal ligation History of bilateral tubal ligation History of Problems with Anesthesia: No Social History Social History Alcohol intake: never Patient Tobacco Use Status: Former Tobacco user Have you been hit, kicked, punched, or otherwise hurt by someone within the past year? 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 Gender identity: Female Meds Allergies Allergy/AdvReac Type Severity Reaction Status Date / Time No Known Allergies Allergy Verified 10/16/23 10:35 Home Medications Medication Instructions Recorded Confirmed Last Taken Type acetaminophen 500 mg tablet 1,000 mg PO Q6H PRN Pain 01/22/22 10/16/23 01/22/22 15:00 History 1000 mg fluticasone propionate 50 0 mcg intranasal 05/02/23 10/16/23 Unknown History mcg/actuation nasal spray,suspension pseudoephedrine HCl 120 mg 120 mg PO Q12H 05/02/23 10/16/23 Unknown History tablet,extended release (Sudafed 12 Hour) sumatriptan succinate 100 mg tablet 0 mg PO 05/02/23 10/16/23 Unknown History dicyclomine 20 mg tablet 20 mg PO QID PRN abdominal pain 07/12/23 10/16/23 Unknown History naproxen 500 mg tablet 500 mg PO BID 07/12/23 10/16/23 Unknown History famotidine 20 mg tablet 20 mg PO BID 09/25/23 10/16/23 Unknown History pantoprazole 20 mg tablet,delayed 20 mg PO DAILY 09/25/23 10/16/23 Unknown History release Exam Airway Mallampati Class: II TM Dist: >3cm Neck ROM: Full Loose/Missing/Broken Teeth: No Heart: rrr Lungs: ta b/l Assessment and Plan Final Anesthetic Review Family History of Problems with Anesthesia: No History of Problems with Anesthesia: No NPO: Yes ASA Class: II Final Preanesthetic Review: No Changes in Pt Med Stat, Meds/Allgs Chart Reviewed, Consent Obtained/Reviewed and Anes Risks/Benef Reviewed Patient Risk: Intermediate Procedure Risk: Intermediate Anesthetic Plan Anesthetic Plan: MAC: Disposition: Standard PACU
[2023-12-27 14:13] VITALS: BP 118/74; PULSE 86; RESP 18; TEMP 36.9; O2SAT 100; BMI 38.1
[2023-12-27] MEDS: Lactated Ringers 1,000 ML 100 ML IVCONT (14:19)
--- NOTE | 2023-12-27 14:56 | MHC.SHP ---
Pre-Procedural Eval Section A - 24 Hr Update-Section A only Date of Service: 12/27/23 The patient is an INPATIENT: No The patient has been examined within 24 hours of the surgical procedure. The History & Physical has been completed within 30 days and I have reviewed it.: No Section B - Complete if H&P > 30 days Chief Complaint: Colon cancer screening, GERD, abdominal bloating Relevant Family History (Specify if Yes): No Relevant Social History: None Present Medications: see Short Stay Collaborative assessment Medical History: Significant History (BCP ( control pills) initiation Well woman exam with routine gynecological exam Gall bladder disease Migraines) History of Previous Operations: Relevant previous surgery/procedure and date(s) (History of reversal of tubal ligation History of bilateral tubal ligation) Allergies: Allergies Allergy/AdvReac Type Severity Reaction Status Date / Time No Known Allergies Allergy Verified 10/16/23 10:35 Review of Systems Sugical H&P ROS: Negative: Constitution, Cardiovascular, Respiratory and Gastrointestinal Exam Surgical H&P Exam: Normal: Heart, Normal: Lungs, Normal: Extremities and Normal: Abdomen Plan Diagnosis/Plan: Unchanged I have reviewed the history and physical and performed a pertinent physical examination on my patient. No changes have occurred unless specified. Time Spent With Patient Time: Total time managing care of this patient today ____ minutes.
--- NOTE | 2023-12-27 15:05 | W.PM.OPN ---
Operative Note Operative Note Date of Service: 12/27/23 Narrative: FLEXIBLE TRANSORAL UPPER GASTROINTESTINAL ENDOSCOPY WITH BIOPSIES AND COLONOSCOPY TILL CECUM WITH BIOPSIES Pre-op diagnosis: Colon cancer screening, GERD, abdominal bloating, intermittent diarrhea Post-op diagnosis: GERD, Esophagitis, hiatal hernia, Gastritis, Diverticulosis. Endoscopist:Deja Colby MD Anesthesia:?MAC UPPER ENDOSCOPY Consent: Indications for the procedure and potential complications of bleeding, perforation, reaction to medications and missed diagnosis were discussed with the patient and informed consent was obtained. Instrument: Olympus GIF H 190 mid size upper endoscope Monitoring: Vital signs and clinical assessment, continuous EKG monitoring, Pulse oximetry, Carbon Dioxide monitoring and blood pressure monitoring were done throughout the procedure. Procedure: The patient was placed in the left lateral decubitis position and pre-procedure medications were administered and a bite block was placed. The endoscope was inserted into the mouth and advanced under direct vision to the third part of duodenum. A careful inspection was made as the upper endoscope was withdrawn including a retroflexed examination of the proximal stomach; Findings and interventions are described below. Findings: Larynx: Normal Esophagus: GE junction at 33 cms, small hiatal hernia 33 to 35 cms. Focal esophagitis at the GE junction with a few 1 cms erosions and a 1 cms ulcer at GE junction. A small non-obstructing Schatzki's ring. Stomach: Moderate diffuse gastric erythema - biopsies were obtained from the body and antrum. Grade 3 flap valve on retroflexed examination of the cardia. Duodenum: Normal bulb and descending duodenum Biopsies were obtained from descending duodenum to check for celiac sprue Intervention: Biopsies as noted above COLONOSCOPY PROCEDURE NOTE Instrument: Olympus PCF H 190 L variable stiffness pediatric colonoscope Monitoring: Vital signs and clinical assessment, intermittent blood pressure monitoring, continuous EKG monitoring, Pulse oximetry and Carbon Dioxide monitoring were done throughout the procedure. Please see anesthesia flowsheet. Colon withdrawl time was 20 minutes. Procedure: The patient was placed in the left lateral decubitis position and pre-procedure medications were administered. After a digital rectal examination of the ano-rectum, the video colonoscope was inserted into the rectum and advanced through the colon to the cecum. The colonoscope was slowly withdrawn in a retrograde panoramic fashion and the colon mucosa was carefully examined including a retroflexed view of the rectum. Findings and interventions are described below. Procedure Difficulty: without difficulty Findings: Terminal Ileum: Distal 5 cms was examined and appeared normal Cecum: Normal Ascending Colon: Slightly nodular appearing mucosa in the right colon without ulcers or erosions - random biopsies were obtained to check for microscopic colitis Transverse Colon: Normal Descending Colon: Normal Sigmoid Colon: Moderate diverticulosis Rectum: Normal Ano-rectum: Normal Colon preparation: Good after copious irrigation. [place] Bowel Preparation Scale Right colon; 2 Transverse colon: 2 Left colon; 2 (0 = Unprepared colon segment with mucosa not seen due to solid stool that cannot be cleared. 1 = Portion of mucosa of the colon segment seen, but other areas of the colon segment not well seen due to staining, residual stool and/or opaque liquid. 2 = Minor amount of residual staining, small fragments of stool and/or opaque liquid, but mucosa of colon segment seen well. 3 = Entire mucosa of colon segment seen well with no residual staining, small fragments of stool or opaque liquid) Impression and Post Procedure Diagnosis: Endoscopy Findings: ESOPHAGUS: GE junction at 33 cms, small hiatal hernia 33 to 35 cms. Focal esophagitis at the GE junction with a few 1 cms erosions and a 1 cms ulcer at GE junction. A small non-obstructing Schatzki's ring. STOMACH: Diffuse gastritis DUODENUM: Normal - biopsied to check for celiac sprue Impression and Post Procedure Diagnosis: Colonoscopy Findings: No polyps were detected Slightly nodular appearing mucosa in the right colon without ulcers or erosions - random biopsies were obtained from right and left colon to check for microscopic colitis Moderate diverticulosis seen in the sigmoid colon Plan: Pt has a FU appointment on 01/09/24 with ELINA Kohler. Consider further evaluation of GERD with a barium swallow. Repeat Colonoscopy in 10 year if colon biopsies are normal. Above findings were reviewed with the patient and relevant handouts were given and the discharge area.
[2023-12-27 15:53] VITALS: BP 116/71; PULSE 82; RESP 16; TEMP 36.2; O2SAT 99
[2023-12-27 16:08] VITALS: BP 125/78; PULSE 81; RESP 14; O2SAT 100
[2023-12-27 16:23] VITALS: BP 130/76; PULSE 79; RESP 17; TEMP 36.2; O2SAT 100
== END 2023-12-27 16:42 | disposition home or self-care (01) ==
PROVIDERS: PCP Internal Medicine; Visit Provider Internal Medicine Gastroenterology
PROC: (CPT 45380; principal; 2023-12-27 15:20)
DX: Z12.11 Encounter for screening for malignant neoplasm of colon (principal); K57.30 Diverticulosis of large intestine without perforation or abscess without bleeding; R14.0 Abdominal distension (gaseous); K21.9 Gastro-esophageal reflux disease without esophagitis; K22.2 Esophageal obstruction; K29.50 Unspecified chronic gastritis without bleeding; K20.80 Other esophagitis without bleeding; K44.9 Diaphragmatic hernia without obstruction or gangrene; G43.909 Migraine, unspecified, not intractable, without status migrainosus; Z79.899 Other long term (current) drug therapy; Z79.1 Long term (current) use of non-steroidal anti-inflammatories (NSAID); Z98.890 Other specified postprocedural states; Z87.891 Personal history of nicotine dependence
CPT/HCPCS: 45380; 43239; 88305; 88313; 88342; J2704

== ENCOUNTER → 2023-12-27 12:41 | Outpatient (BNV) | payer MEDICAID, SELFPAY | PROVIDERS: PCP Internal Medicine; Visit Provider Internal Medicine Gastroenterology | DX: K20.90 Esophagitis, unspecified without bleeding (principal); K44.9 Diaphragmatic hernia without obstruction or gangrene; K29.70 Gastritis, unspecified, without bleeding; K21.9 Gastro-esophageal reflux disease without esophagitis; Z12.11 Encounter for screening for malignant neoplasm of colon; K57.90 Diverticulosis of intestine, part unspecified, without perforation or abscess without bleeding | CPT/HCPCS: 43239; 45380 ==

== ENCOUNTER 2024-01-09 12:08 | Outpatient (AMB) | payer MEDICAID, SELFPAY ==
--- NOTE | 2024-01-09 12:33 | A.OFFVIS_ITS ---
Intake Vital Signs 01/09/24 12:35 Height 5 ft 3 in Weight 220 lb BMI 39.0 BP 122/66 Blood Pressure Location Lt brachial Position Sitting Pulse 81 Intake Visit Reasons: s/p egd/colon Lasha Intake Note: Patient EGD/Colonoscopy results. Patient cc: LLQ pain, abdominal bloating, acid reflex with burning sensation on and off, denies any other GI issues. Research Contracts Supervisor Required: Yes Accompanied by: Self / Same As Patient Allergies No Known Allergies Allergy (Verified 01/09/24 12:33) Medication List - Last Reconciled 01/09/24 by Robyn Beach PA-C acetaminophen 1,000 mg PO Q6H PRN dicyclomine 20 mg PO QID PRN famotidine 20 mg PO BID fluticasone propionate 50 mcg/actuation 0 mcg intranasal naproxen 500 mg PO BID pantoprazole 40 mg PO ONCE pseudoephedrine HCl ER (Sudafed 12 Hour) 120 mg PO Q12H simethicone (Gas Relief (simethicone)) 125 mg PO TID-QID PRN sucralfate 1 g (10 mL) PO QIDACHS 4 weeks sumatriptan succinate 0 mg PO HPI HPI Comments History of Present Illness Details A48 y/o female f/u after EGD and colonoscopy, tolerated procedures well no -she continues to have heartburn she has been taking naproxen for fibro- Reviewed report, path and recommendations Opportunity for questions answered to her satisfaction No nausea, vomiting hematemesis, hematochezia fever or chills PFSH Medical History (Updated 01/09/24 @ 13:05 by Robyn Beach PA-C) Potential exposure to STD Cervical cancer screening BCP ( control pills) initiation Well woman exam with routine gynecological exam Gall bladder disease Migraines Surgical History History of reversal of tubal ligation History of bilateral tubal ligation Social History Alcohol intake: never Patient Tobacco Use Status: Former Tobacco user Current occupational status: employed 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 Gender identity: Female Female Reproductive History Menstrual Age of Menarche: 10 Review of Systems Const All systems reviewed & are unremarkable except as noted in HPI and below Card Denies chest pain GI Denies abdominal pain, Denies change in bowel habits, Reports heartburn, Denies nausea and Denies vomiting Physical Exam Vital Signs: Last Vital Signs Pulse 81 01/09/24 12:35 BP 122/66 01/09/24 12:35 BMI result Body Mass Index 39.0 Const General: cooperative, healthy appearing, comfortable and no acute distress Orientation/consciousness: patient oriented x3 Limitations: language barrier Resp Effort & Inspection: normal respiratory effort and able to speak in complete sentences Neuro General: patient oriented x3 Extrem General: Yes full ROM Psych Appearance: grossly normal and well kempt Mental Status: mental status grossly normal Speech and movement: Normal speech and movement present Affect: normal affect Attitude: cooperative Thought process: Normal thought process present Thought content: Normal thought content present Insight: Good insight present (Psych) Judgement: Good judgement present (Psych) Results Reviewed Results Reviewed: mpression and Post Procedure Diagnosis: Endoscopy Findings: ESOPHAGUS: GE junction at 33 cms, small hiatal hernia 33 to 35 cms. Focal esophagitis at the GE junction with a few 1 cms erosions and a 1 cms ulcer at GE junction. A small non-obstructing Schatzki's ring. STOMACH: Diffuse gastritis DUODENUM: Normal - biopsied to check for celiac sprue Impression and Post Procedure Diagnosis: Colonoscopy Findings: No polyps were detected Slightly nodular appearing mucosa in the right colon without ulcers or erosions - random biopsies were obtained from right and left colon to check for microscopic colitis Moderate diverticulosis seen in the sigmoid colon Plan: Pt has a FU appointment on 01/09/24 with ELINA Kohler. Consider further evaluation of GERD with a barium swallow. Repeat Colonoscopy in 10 year if colon biopsies are normal. Above findings were reviewed with the patient and relevant handouts were given and the discharge area. unt #: [id number] Copies to: Tara Shaikh MD MR #: [id number] Status: [facility] Collected: 12/27/23 Location: [facility] Received: 12/30/23 Diagnosis A. Small bowel, biopsy: Small intestinal mucosa within normal limits; negative for celiac disease. B. Stomach, antrum, biopsy: Antral-type mucosa with mild chronic inactive inflammation; no Helicobacter organisms seen. C. Stomach, body, biopsy: Oxyntic mucosa with mild chronic inactive inflammation; no Helicobacter organisms seen. D. Colon, right, biopsy: Colonic mucosa within normal limits; negative for microscopic colitis. E. Colon, left, biopsy: Colonic mucosa within normal limits; negative for microscopic colitis. Clinical History Pre-Op Dx: Reflux, screening Post-Op Dx: Gastritis, esophagitis, hiatal hernia, diverticulosis Microscopic Description A-E. Microscopic sections examined. No metaplastic changes are seen, supported by AB/PAS stains (A- C); no Helicobacter organisms are seen, supported by H. pylori immunostain (B and C). Material Received A. Small bowel bx, r/o celiac B. Gastric antrum bx for H. pylori C. Gastric body bx D. Bx right colon, r/o microscopic colitis E. Left colon bx, r/o microscopic colitis Gross Description Received in 5 parts. Part A: Received in formalin labeled ?small bowel bx's, rule out celiac? are 2 santos irregular tissue fragments each measuring 0.3 cm, submitted in toto in a cassette labeled A. Part B: Received in formalin labeled ?gastric antrum bx, run for H. pylori? are 2 pale, chery-white irregular and rectangular tissue fragments measuring 0.25 and 0.35 cm, submitted in toto in a cassette labeled B. Patient: Noris Koenig Age/Sex: 48/F MR#: [id number] Page 1 of 2 Assessment & Plan Assessment & Plan (1) Chronic GERD: Code(s): K21.9 - Gastro-esophageal reflux disease without esophagitis Plan: Will switch from famotidine to omeprazole 40 mg daily (2) Diverticulosis of colon: Code(s): K57.30 - Diverticulosis of large intestine without perforation or abscess without bleeding Plan: High-fiber ER protocol (3) Schatzki's ring: Code(s): K22.2 - Esophageal obstruction Plan omeprazole 40 mg- avoid NSAIDS Reflux precautions BS-scheduled to further assess HFD Diverticulosis/diverticulitis ER protocol Orders: Orders FL barium swallow Today K21.9 - Gastro-esophageal reflux disease without esophagitis Medications: New omeprazole 40 mg (2 x 20 mg) PO DAILY 30 days PRN 30 caps 6RF gerd Patient Instructions: omeprazole 40 mg- avoid NSAIDS Reflux precautions BS-scheduled to further assess HFD-literature given ER protocol diverticulosis/diverticulitis Encouraged to call questions or concerns Coding Level of Care Code Est Pt Level 3 (79644) Diagnoses Chronic GERD K21.9 Diverticulosis of colon K57.30 Schatzki's ring K22.2 Time Spent (min) 30
[2024-01-09 12:35] VITALS: BP 122/66; PULSE 81; BMI 39.0
== END 2024-01-09 13:46 | disposition home or self-care (01) ==
PROVIDERS: PCP Internal Medicine; Visit Provider Physician Assistant
DX: K21.9 Gastro-esophageal reflux disease without esophagitis (principal); K57.30 Diverticulosis of large intestine without perforation or abscess without bleeding; K22.2 Esophageal obstruction
CPT/HCPCS: 99213

== ENCOUNTER → 2024-01-09 12:08 | Outpatient (BNVA) | payer MEDICAID, SELFPAY | PROVIDERS: PCP Internal Medicine; Visit Provider Physician Assistant | DX: K21.9 Gastro-esophageal reflux disease without esophagitis (principal); K57.30 Diverticulosis of large intestine without perforation or abscess without bleeding; K22.2 Esophageal obstruction | CPT/HCPCS: 99212 ==

== ENCOUNTER 2024-03-10 10:01 | Outpatient (REF) | payer MEDICAID, SELFPAY ==
--- NOTE | ~2024-03-10 | FL_ITS ---
EXAMINATION: XR FLUOROSCOPY UPPER GI WITH AIR CLINICAL INFORMATION: Reflux COMPARISON: None TECHNIQUE: Fluoroscopic air contrast upper GI examination was performed utilizing standard techniques with thin and thick barium and effervescent granules. Numerous spot images were obtained. FINDINGS: Dual and single contrast images of the esophagus demonstrates a mildly patulous esophagus. No evidence of stricture, mass, or ulcerations identified. Esophageal peristalsis is mildly disorganized A small type I hiatal hernia is present. Significant gastroesophageal reflux is seen up to the thoracic inlet. Dual contrast and single contrast images of the stomach demonstrated normal contour and mucosal pattern without evidence of mass, ulceration, or other abnormality. Contrast freely passed into the gastric antrum and duodenal bulb without delay. Single and air-contrast images of the duodenal bulb demonstrate no abnormality. The duodenal sweep has a normal appearance, course, and mucosal fold appearance. The imaged proximal jejunum has a normal fold pattern and caliber. FLUOROSCOPY TIME: 3 minutes 28 seconds Number of Spot Images: 14 Number of Cine: 12 DOSE AREA PRODUCT: [id number] uGy-m2 (microgray-meter squared) FL/FL barium swallow with air IMPRESSION: 1. Patulous esophagus with mildly disorganized peristalsis consistent with mild esophageal dysmotility. 2. Small type I hiatal hernia 3. Significant gastroesophageal reflux This procedure was performed by Kiel Fagan PA-C, and supervised by Dr. Walden
== END 2024-03-10 10:02 | disposition home or self-care (01) ==
LOC: HO.XRAY 10:01
PROVIDERS: PCP Internal Medicine; Visit Provider Physician Assistant
DX: K21.9 Gastro-esophageal reflux disease without esophagitis (principal)
CPT/HCPCS: 74221

== ENCOUNTER → 2024-03-10 10:02 | Outpatient (BNV) | payer MEDICAID, SELFPAY | PROVIDERS: PCP Internal Medicine; Visit Provider Physician Assistant Surgical | DX: K21.9 Gastro-esophageal reflux disease without esophagitis (principal) | CPT/HCPCS: 74246 ==

== ENCOUNTER → 2024-08-05 09:30 | Outpatient (BNV) | payer OTHER, SELFPAY | PROVIDERS: PCP Internal Medicine; Visit Provider Internal Medicine | DX: Z12.31 Encounter for screening mammogram for malignant neoplasm of breast (principal) | CPT/HCPCS: 77063; 77067 ==

== ENCOUNTER 2024-08-05 09:32 | Outpatient (REF) | payer OTHER, SELFPAY ==
--- NOTE | ~2024-08-05 | MM_ITS ---
EXAMINATION: MM SCREENING DIGITAL BREAST TOMOSYNTHESIS, BILATERAL CLINICAL INFORMATION: Screening. Asymptomatic. COMPARISON: Mammography: Comparison is made with available priors TECHNIQUE: Digital breast mammography with tomosynthesis is performed in both the craniocaudal and mediolateral oblique views along with computer-aided detection (CAD). FINDINGS: The breasts are heterogeneously dense, which may obscure small masses (ACR BI-RADS breast composition Category c). There are no significant masses, abnormal calcifications, or other abnormalities. MM/MM tomosynthesis screening BI IMPRESSION: No mammographic evidence of malignancy. ASSESSMENT: BI-RADS BI-RADS 1 - Negative RECOMMENDATION: Routine annual mammography screening. 1 year F/U This examination should not preclude the clinical evaluation of a suspicious palpable abnormality. This patient's information was entered into a reminder system with a target due date for their next mammogram. Electronically signed by: Jennifer Rehman DO 08/14/2024 08:14 AM [facility]
== END 2024-08-05 09:33 | disposition home or self-care (01) ==
LOC: HO.MAMMO 09:32
PROVIDERS: PCP Internal Medicine; Visit Provider Internal Medicine
DX: Z12.31 Encounter for screening mammogram for malignant neoplasm of breast (principal)
CPT/HCPCS: 77063; 77067